=== PATIENT | male | born 1955 | race Caucasian/White ===

== ENCOUNTER 2017-06-22 18:27 | Inpatient (IN) | payer SELFPAY ==
[~2017-06-22] VITALS: Ht 175.3 cm; Wt 63.9 kg
[~2017-06-22 18:27] MED LIST: LACTATED RINGER'S 1000 ML INJ 3,000 ML IV ONE; NEOSTIGMINE 3 MG/3 ML SYR IV ONE; ONDANSETRON HCL 4 MG/2 ML VIAL IV PUSH ONE; OXYCODONE PO; PHENYLEPH/NS 1000 MCG/10 ML SYR IV ONE; PROPOFOL 200 MG/20 ML AMP IV ONE
[2017-06-22 18:29] VITALS: BP 109/83; PULSE 136; RESP 22; TEMP 97.5; O2SAT 100
[2017-06-22] MEDS ORDERED: SODIUM CHLOR 0.9% 1000 ML INJ 1,000 ML IV ONE ×3 (19:00→20:30)
[2017-06-22] MEDS ORDERED: ONDANSETRON HCL 4 MG/2 ML VIAL IV ONE (19:00)
[2017-06-22] MEDS ORDERED: HYDROmorphone HCL PF 1 MG/ML VIAL IVS ONE (19:15)
--- NOTE | 2017-06-22 19:21 | RADRPT ---
EXAM DATE/TIME: 06/22/2017 18:53 [facility] COMPARISON: No previous studies available for comparison. INDICATIONS : Short of breath MEDICAL HISTORY : None. SURGICAL HISTORY : None. ENCOUNTER: Initial ACUITY: 1 day PAIN SCORE: 0/10 LOCATION: chest FINDINGS: A single view of the chest demonstrates the lungs to be symmetrically aerated without evidence of mas s, infiltrate or effusion. The cardiomediastinal contours are unremarkable. Osseous structures are intact. CONCLUSION: No acute disease. Corby Herrera MD on June 22, 2017 at 19:19 Board Certified Radiologist. This report was verified electronically.
[2017-06-22 19:35] VITALS: BP 141/96; PULSE 109; RESP 22; O2SAT 99
[2017-06-22 19:42] LABS: AUTOMATED NEUTROPHIL # 5.7 TH/MM3 (1.8-7.7); BASOPHIL % 0.2 % (0.0-2.0); EOSINOPHIL % 0.5 % (0.0-4.0); HEMATOCRIT 61.6 % (39.0-51.0); HEMO FLAGS DIFF FINAL; LYMPH % 12.7 % (9.0-44.0); LYMPHOCYTE # 0.9 TH/MM3 (1.0-4.8); MEAN CORPUSCULAR HEMOGLOBIN 30.2 PG (27.0-34.0); MEAN CORPUSCULAR HGB CONC 33.2 % (32.0-36.0); MONO % 7.5 % (0.0-8.0); NEUT % 79.1 % (16.0-70.0); PLATELET COUNT 206 TH/MM3 (150-450); RED BLOOD COUNT 6.77 MIL/MM3 (4.50-5.90); RED CELL DISTRIBUTION WIDTH 15.4 % (11.6-17.2); WHITE BLOOD COUNT 7.2 TH/MM3 (4.0-11.0)
[2017-06-22 19:52] VITALS: O2SAT 98
[2017-06-22 19:57] LABS: ALKALINE PHOSPHATASE 91 U/L (45-117); ALT (GPT) 76 U/L (12-78); ANION GAP 12 MEQ/L (5-15); AST (GOT) 57 U/L (15-37); BICARBONATE 26.5 MEQ/L (21.0-32.0); BLOOD UREA NITROGEN 28 MG/DL (7-18); CHLORIDE 92 MEQ/L (98-107); GLOMERULAR FILTRATION RATE 41 ML/MIN (>89); MAGNESIUM 2.5 MG/DL (1.5-2.5); POTASSIUM 4.2 MEQ/L (3.5-5.1); SODIUM (NA) 130 MEQ/L (136-145)
[2017-06-22 20:10] LABS: INTERNATIONAL NORMALIZED RATIO 1.2 RATIO; PROTHROMBIN TIME - PATIENT 13.2 SEC (9.8-11.6)
[2017-06-22 20:15] LABS: APTT (PATIENT) 27.5 SEC (24.3-30.1)
[2017-06-22] MEDS ORDERED: IODIXANOL 320 MG/ML 10 ML VIAL (for Rad CT) IV ONE (20:25)
[2017-06-22] MEDS ORDERED: PIPERACIL-TAZO 3.375 GM PREMIX 50 ML IV ONE (20:30)
[2017-06-22] MEDS ORDERED: VANCOMYCIN INJ 1,000 MG in SODIUM CHLOR 0.9% 250 ML INJ 250 ML IV ONE (20:30)
[2017-06-22 20:35] VITALS: BP 150/87; PULSE 115; RESP 22; O2SAT 99
[2017-06-22] MEDS ORDERED: HYDROmorphone HCL PF 1 MG/ML VIAL IV PUSH ONE (20:45)
[2017-06-22] MEDS ORDERED: MIDAZOLAM HCL 2 MG/2 ML VIAL IV PUSH ONE (20:45)
--- NOTE | 2017-06-22 20:47 | PD ---
HPI Chief Complaint: Abdominal Pain Time Seen by Provider: 18:51 Travel History International Travel<30 days: No Contact w/Intl Traveler<30days: No Traveled to known affect area: No History of Present Illness HPI Is a 61-year-old man presents to the emergency department complaining of severe abdominal pain. He states symptoms started about 20 hours ago. Pain is been persistent and progressive. He has severe tenderness, and pain with any movement. He was dropped off by a friend. He reports no history of abdominal surgery. He states that he has had liver problems from drinking in the past but has not drank in 2 years. He does endorse IV drug use. He states he's been vomiting, and has noticed a little bit of blood in his vomit. No fevers. Denies any other medical problems. History Past Medical History Narrative Medical Alcoholic liver disease Active IV drug use Social History Alcohol Use: Yes (6 BEER/DAY) Tobacco Use: Yes (1/2 A PACK A DAY ) Allergies-Medications (Allergen,Severity, Reaction): Coded Allergies: Penicillin (Verified Allergy, Mild, REACTION TO SITE OF INJECTION, 06/22/17) Reported Meds & Prescriptions Reported Meds & Active Scripts Active Reported Oxycodone (Oxycodone HCl) 30 Mg Tab 30 Mg PO Q4HR PRN Review of Systems ROS Limitations: Clinical Condition Physical Exam Narrative GENERAL: This is an ill-appearing 61-year-old man, diaphoretic, thin. SKIN: Focused skin assessment warm/dry. HEAD: Atraumatic. Temporal wasting. EYES: Pupils equal and round. No scleral icterus. No injection or drainage. ENT: No nasal bleeding or discharge. Mucous membranes pink and moist. NECK: Trachea midline. No JVD. CARDIOVASCULAR: Heart rate rapid, pulse is a little thready. RESPIRATORY: Mild tachypnea. No obvious respiratory distress. GASTROINTESTINAL: Abdomen is flat, peritonitis. MUSCULOSKELETAL: No obvious deformities. Decreased muscle bulk. No edema. NEUROLOGICAL: Awake and alert. No obvious cranial nerve deficits. Motor grossly within normal limits. Normal speech. PSYCHIATRIC: Appropriate mood and affect; insight and judgment normal. Data Data Last Documented VS Vital Signs Date Time Temp Pulse Resp B/P Pulse Ox O2 Delivery O2 Flow Rate FiO2 06/22/17 20:35 115 22 150/87 99 Room Air 06/22/17 18:29 97.5 Orders Complete Blood Count With Diff (06/22/17 18:51) Comprehensive Metabolic Panel (06/22/17 18:51) Prothrombin Time / Inr (Pt) (06/22/17 18:51) Act Partial Throm Time (Ptt) (06/22/17 18:51) Lactic Acid Sepsis Protocol (06/22/17 18:51) Magnesium (Mg) (06/22/17 18:51) Lipase (06/22/17 18:51) Troponin I (06/22/17 18:51) Urinalysis - C+S If Indicated (06/22/17 18:51) Blood Culture (06/22/17 18:51) Chest, Single Ap (06/22/17 18:51) Blood Glucose (06/22/17 18:51) Ecg Monitoring (06/22/17 18:51) Iv Access Insert/Monitor (06/22/17 18:51) Oximetry (06/22/17 18:51) Oxygen Administration (06/22/17 18:51) Type And Screen (06/22/17 18:51) Sodium Chlor 0.9% 1000 Ml Inj (Ns 1000 M (06/22/17 19:00) Ondansetron Inj (Zofran Inj) (06/22/17 19:00) Hydromorphone Pf Inj (Dilaudid Pf Inj) (06/22/17 19:15) Sodium Chlor 0.9% 1000 Ml Inj (Ns 1000 M (06/22/17 19:15) Ct Abd/Pel W Iv Contrast(Rout) (06/22/17 ) Electrocardiogram (06/22/17 19:01) Sodium Chlor 0.9% 1000 Ml Inj (Ns 1000 M (06/22/17 20:30) Vancomycin Inj (Vancomycin Inj) (06/22/17 20:30) Piperacil-Tazo 3.375 Gm Premix (Zosyn 3. (06/22/17 20:30) Iodixanol 320 Inj (Rad Ct) (Visipaque 32 (06/22/17 20:25) Hydromorphone Pf Inj (Dilaudid Pf Inj) (06/22/17 20:45) Midazolam Inj (Versed Inj) (06/22/17 20:45) Admit Order (Ed Use Only) (06/22/17 ) Labs Laboratory Tests Test 06/22/17 19:15 White Blood Count 7.2 TH/MM3 Red Blood Count 6.77 MIL/MM3 Hemoglobin 20.5 GM/DL Hematocrit 61.6 % Mean Corpuscular Volume 91.0 FL Mean Corpuscular Hemoglobin 30.2 PG Mean Corpuscular Hemoglobin 33.2 % Concent Red Cell Distribution Width 15.4 % Platelet Count 206 TH/MM3 Mean Platelet Volume 9.4 FL Neutrophils (%) (Auto) 79.1 % Lymphocytes (%) (Auto) 12.7 % Monocytes (%) (Auto) 7.5 % Eosinophils (%) (Auto) 0.5 % Basophils (%) (Auto) 0.2 % Neutrophils # (Auto) 5.7 TH/MM3 Lymphocytes # (Auto) 0.9 TH/MM3 Monocytes # (Auto) 0.5 TH/MM3 Eosinophils # (Auto) 0.0 TH/MM3 Basophils # (Auto) 0.0 TH/MM3 CBC Comment DIFF FINAL Differential Comment Prothrombin Time 13.2 SEC Prothromb Time International 1.2 RATIO Ratio Activated Partial 27.5 SEC Thromboplast Time Sodium Level 130 MEQ/L Potassium Level 4.2 MEQ/L Chloride Level 92 MEQ/L Carbon Dioxide Level 26.5 MEQ/L Anion Gap 12 MEQ/L Blood Urea Nitrogen 28 MG/DL Creatinine 1.70 MG/DL Estimat Glomerular Filtration 41 ML/MIN Rate Random Glucose 209 MG/DL Lactic Acid Level 5.9 mmol/L Calcium Level 8.8 MG/DL Magnesium Level 2.5 MG/DL Total Bilirubin 1.0 MG/DL Aspartate Amino Transf 57 U/L (AST/SGOT) Alanine Aminotransferase 76 U/L (ALT/SGPT) Alkaline Phosphatase 91 U/L Troponin I LESS THAN 0.02 NG/ML Total Protein 7.9 GM/DL Albumin 3.1 GM/DL Lipase 181 U/L Blood Type O POSITIVE Antibody Screen NEGATIVE MDM Medical Decision Making Medical Screen Exam Complete: Yes Emergency Medical Condition: Yes Interpretation(s) LABS: CBC is remarkable for hemoglobin of 20 CMP remarkable for evident and creatinine Lactate 5.9 Lipase 181 Coags INR 1.2 Chest x-ray: No acute disease. CT abdomen and pelvis: Free intraperitoneal air with moderate to severe ascites. 7.9 mm loculated abscess in the mesentery 11 a sac. Probable portal venous gas. Findings suspicious for perforated bowel. Differential Diagnosis Perforation, pancreatitis, gastritis, mesenteric ischemia, GI bleed, sepsis, other Narrative Course Medical decision making A 61-year-old man who presents to the emergency department with severe abdominal pain about 20 hours with some hematemesis. He has peritonitis on exam. He looks ill. Likely has pancreatitis perforation or GI bleed. Abdominal x-ray doesn't show any free air. I went over the patient is CT scan, CT scan shows free air with fluid in the belly as well. I spoke with Dr. Rubin, with general surgery, came immediately to the bedside to evaluate the patient. Patient be admitted to the ICU. Possibly to OR. Critical Care Narrative Aggregate critical care time was 45 minutes. Time to perform other separately billable procedures was not included in the critical care time. My time did not include minutes spent treating any other patients simultaneously or on activities that did not directly contribute to the patient's treatment. The services I provided to this patient were to treat and/or prevent clinically significant deterioration that could result in: , worsening sepsis, increased morbidity, unrecognized bowel. I provided critical care services requiring my management, as noted below: Chart data review, documentation time, medication orders and management, vital sign assessments/reviewing monitor data, ordering and reviewing lab tests, ordering and interpreting/reviewing x-rays and diagnostic studies, care of the patient and discussion of the patient with the admitting physicians. Diagnosis Primary Impression: Perforated bowel Admitting Information Admitting Physician Requests: Laz Breen MD Jun 22, 2017 20:47
--- NOTE | 2017-06-22 20:49 | RADRPT ---
EXAM DATE/TIME: 06/22/2017 20:15 [facility] COMPARISON: No previous studies available for comparison. INDICATIONS : Abdominal pain with vomiting. IV CONTRAST: 50 cc Visipaque (iodixanol) IV ORAL CONTRAST: No oral contrast ingested. RADIATION DOSE: 6.67 CTDIvol (mGy) MEDICAL HISTORY : Gastroesophageal reflux disease. SURGICAL HISTORY : Cervical fusion. ENCOUNTER: Initial ACUITY: 1 day PAIN SCALE: 6/10 LOCATION: Bilateral abdomen TECHNIQUE: Volumetric scanning of the abdomen and pelvis was performed. Using automated exposure control and ad justment of the mA and/or kV according to patient size, radiation dose was kept as low as reasonably achievable to obtain optimal diagnostic quality images. DICOM format image data is available electro nically for review and comparison. FINDINGS: Lung bases are clear. There is free intraperitoneal air within the abdomen. There is moderate to severe ascites in the abdo men and pelvis. There is a subtle loculated collection in the midabdomen, possibly the mesentery that contains multiple small locules of air, probably a mesenteric or lesser sac abscess. The findings ar e most characteristic of a perforated viscus with associated abscess and free air. There is a mild il eus. No definite obstruction. The multiple thickened loops of small bowel. There is some trace air in the liver possibly portal angi ous gas. Findings discussed by telephone with Dr. Rubin. CONCLUSION: 1. Free intraperitoneal air with moderate to severe ascites. 7.9 cm loculated abscess in the mesenter y or lesser sac. Probable portal venous gas. Findings suspicious for perforated bowel. No definite ob struction. 2. Hiatal hernia with fluid in distal esophagus. Lung bases clear. Corby Herrera MD on June 22, 2017 at 20:39 Board Certified Radiologist. This report was verified electronically.
[2017-06-22] MEDS ORDERED: OXYC30TA PO (20:54)
--- NOTE | 2017-06-22 21:09 | PD.CONS ---
HPI Service General surgery Consult Requested By Dr. Suarez Reason for Consult Perforated viscus Primary Care Physician No Primary Care Physician History of Present Illness The patient is a 61-year-old male who has a history of alcoholism and IV drug use with abdominal pain for 24 hours which is worsened in severity. He states that initially he had an episode of retching but was unable to have emesis and this is when he began to have some pain. He has no known history of peptic ulcers. He does have a history of diverticulitis. He drank very heavily until about 2 years ago. He uses narcotics IV now. No previous abdominal surgeries. He was noted to have a lactate of [address] abdomen and pelvis shows a large volume of free fluid also with free air. I reviewed the imaging also discussed the case with Dr. Herrera. Review of Systems Constitutional: DENIES: Fever, Chills Eyes: DENIES: Eye inflammation, Eye pain Respiratory: DENIES: Cough, Shortness of breath Cardiovascular: DENIES: Chest pain, Palpitations Gastrointestinal: COMPLAINS OF: Abdominal pain, Nausea, Vomiting Musculoskeletal: COMPLAINS OF: Neck pain, DENIES: Joint Swelling Integumentary: DENIES: Pruritus, Rash Neurologic: DENIES: Abnormal gait, Seizures Past Family Social History Past Medical History Diverticulitis Alcohol abuse IV drug use Past Surgical History Cervical fusion Reported Medications Reported Meds & Active Scripts Active Reported Oxycodone (Oxycodone HCl) 30 Mg Tab 30 Mg PO Q4HR PRN Allergies: Coded Allergies: Penicillin (Verified Allergy, Mild, REACTION TO SITE OF INJECTION, 06/22/17) Active Ordered Medications Current Medications Medications (Trade) Dose Ordered Sig/Jorge Route Start Time Stop Time Status Last Admin Sodium Chloride 1,000 ml @ 2,000 mls/hr Q30M ONCE IV 06/22/17 20:30 06/22/17 20:59 Vancomycin HCl 1000 mg/Sodium Chloride 250 ml @ 250 mls/hr ONCE ONCE IV 06/22/17 20:30 06/22/17 21:29 (Zosyn 3.375 Gm Premix) 50 ml @ 100 mls/hr ONCE ONCE IV 06/22/17 20:30 06/22/17 20:59 Family History Noncontributory Social History He smokes tobacco. He drank heavily for 40 years and stopped 2 years ago. He uses IV narcotics. Physical Exam Vital Signs Vital Signs Date Time Temp Pulse Resp B/P Pulse Ox O2 Delivery O2 Flow Rate FiO2 06/22/17 19:52 98 Room Air 06/22/17 19:44 18 06/22/17 18:29 97.5 136 22 109/83 100 Physical Exam GENERAL: Awake and alert. In pain. Cachectic. HEAD: Normocephalic. Atraumatic. EYES: Pupils equal round and reactive to light bilaterally. No scleral icterus. NECK: Trachea midline. CHEST: Lungs clear to auscultation bilaterally with no wheezing or rhonchi. No respiratory distress. CARDIOVASCULAR: Sinus tachycardia ABDOMEN: Moderate distention. Diffuse rebound and guarding. EXTREMITIES: No cyanosis or edema. SKIN: Cool, dry, nonjaundiced. He has small lesions which appear to be bites on his extremities and torso Laboratory Laboratory Tests Test 06/22/17 19:15 White Blood Count 7.2 Red Blood Count 6.77 Hemoglobin 20.5 Hematocrit 61.6 Mean Corpuscular Volume 91.0 Mean Corpuscular Hemoglobin 30.2 Mean Corpuscular Hemoglobin 33.2 Concent Red Cell Distribution Width 15.4 Platelet Count 206 Mean Platelet Volume 9.4 Neutrophils (%) (Auto) 79.1 Lymphocytes (%) (Auto) 12.7 Monocytes (%) (Auto) 7.5 Eosinophils (%) (Auto) 0.5 Basophils (%) (Auto) 0.2 Neutrophils # (Auto) 5.7 Lymphocytes # (Auto) 0.9 Monocytes # (Auto) 0.5 Eosinophils # (Auto) 0.0 Basophils # (Auto) 0.0 CBC Comment DIFF FINAL Differential Comment Prothrombin Time 13.2 Prothromb Time International 1.2 Ratio Activated Partial 27.5 Thromboplast Time Sodium Level 130 Potassium Level 4.2 Chloride Level 92 Carbon Dioxide Level 26.5 Anion Gap 12 Blood Urea Nitrogen 28 Creatinine 1.70 Estimat Glomerular Filtration 41 Rate Random Glucose 209 Lactic Acid Level 5.9 Calcium Level 8.8 Magnesium Level 2.5 Total Bilirubin 1.0 Aspartate Amino Transf 57 (AST/SGOT) Alanine Aminotransferase 76 (ALT/SGPT) Alkaline Phosphatase 91 Troponin I LESS THAN 0.02 Total Protein 7.9 Albumin 3.1 Lipase 181 Blood Type O POSITIVE Antibody Screen NEGATIVE Date/Time Procedure Status Source Growth 06/22/17 19:28 Aerobic Blood Culture Received Blood Peripheral Pending 06/22/17 19:28 Anaerobic Blood Culture Received Blood Peripheral Pending Result Diagram: 06/22/17191406/22/171914 Imaging Last Impressions Chest X-Ray 06/22/17 1851 Signed Impressions: Service Date/Time: Thursday, June 22, 2017 18:53 - CONCLUSION: No acute disease. Corby Herrera MD Abdomen/Pelvis CT 06/22/17 0000 Signed Impressions: Service Date/Time: Thursday, June 22, 2017 20:15 - CONCLUSION: 1. Free intraperitoneal air with moderate to severe ascites. 7.9 cm loculated abscess in the mesentery or lesser sac. Probable portal venous gas. Findings suspicious for perforated bowel. No definite obstruction. 2. Hiatal hernia with fluid in distal esophagus. Lung bases clear. Corby Herrera MD Assessment and Plan Assessment and Plan 61-year-old male with history of alcohol abuse and recent IV drug use with perforated viscus. I had an in-depth discussion with the patient regarding his diagnosis. I do not know the etiology of the pneumoperitoneum and free fluid, however, he will not survive without an operation. He understands I will perform any necessary procedures and that bowel resection and ostomy are possible. He will probably have a somewhat prolonged stay in the intensive care unit. He understands his critical condition. Case discussed with Dr. Suarez. Case discussed with Dr. Herrera. ScottieJuancho delgado MD Jun 22, 2017 21:09
[2017-06-22 21:27] LABS: LACTIC ACID GHOST NOT REPORTABLE
[2017-06-22] MEDS ORDERED: metroNIDAZOLE 500 MG INJ 100 ML IV ONE (22:23)
[2017-06-22] MEDS ORDERED: SUGAMMADEX SODIUM 200 MG/2 ML VIAL IV PUSH ONE ×2 (22:40)
--- NOTE | 2017-06-22 23:45 | HHI.HP ---
[facility] Service Critical Care Medicine Primary Care Physician No Primary Care Physician Admission Diagnosis Perforated Bowel Diagnosis: (1) Perforated bowel Diagnosis: Principal (2) History of ETOH abuse Diagnosis: Principal (3) Hyponatremia Diagnosis: Principal (4) Polycythemia Diagnosis: Principal (5) Lactic acidosis Diagnosis: Principal (6) Sigmoid diverticulosis Diagnosis: Principal (7) Acute kidney injury Diagnosis: Principal (8) Elevated AST (SGOT) Diagnosis: Principal (9) Ascites Diagnosis: Principal (10) History of hepatitis Diagnosis: Principal (11) Current tobacco use Diagnosis: Principal (12) Septic shock Diagnosis: Principal (13) Chronic, continuous use of opioids Diagnosis: Principal Chief Complaint: Abdominal pain Travel History International Travel<30 Days: No Contact w/Intl Traveler <30 Da: No Traveled to Known Affected Are: No Sepsis Criteria SIRS Criteria (2 or more): Heart rate over 90, RR > 20 or PaCO2 < 32 Sepsis Criteria (SIRS+source): Infect source susp/known Severe Sepsis (+one): Lactate >2 Septic Shock Criteria: Lactic acid >=4 History of Present Illness 61-year-old male. Date of admission 06/22/2017. Past medical history includes EtOH, tobaccoism. States he's been off alcohol for 2 years, hepatitis A, sigmoid diverticulosis, gastroesophageal reflux disease. Chronic oxycodone use. No previous abdominal surgeries. Workup included a CT the abdomen/pelvis revealed free intraperitoneal air, abdominal ascites with 7.9 cm loculation in the mesentery/lesser sac, hiatal hernia with food in esophagus and portal venous gas. Lactate was 5.9. White Blood cell count was normal. Patient was in acute renal failure creatinine 1.7/baseline 0.9 and a polycythemia/likely hemoconcentration due to dehydration Patient was taken to the OR for exploratory surgery by Dr. Rubin. Patient had an exploratory laparotomy is noted to have a perforation for a redo likely secondary to peptic ulcer. Gram patch was placed. Patient is currently been extubated in PACU. Review of Systems Constitutional: DENIES: Fatigue, Fever, Weight gain, Weight loss Endocrine: DENIES: Polydipsia, Polyuria Eyes: DENIES: Blurred vision Ears, nose, mouth, throat: DENIES: Hoarseness, Running Nose Respiratory: DENIES: Shortness of breath Cardiovascular: DENIES: Chest pain Gastrointestinal: COMPLAINS OF: Abdominal pain, Nausea, Vomiting Genitourinary: DENIES: Urgency, Hematuria, Dysuria Musculoskeletal: DENIES: Joint pain Integumentary: DENIES: Abnormal pigmentation Hematologic/lymphatic: DENIES: Bruising Immunologic/allergic: DENIES: Eczema Neurologic: DENIES: Headache Psychiatric: COMPLAINS OF: Anxiety, DENIES: Confusion Past Family Social History Allergies: Coded Allergies: Penicillin (Verified Allergy, Mild, REACTION TO SITE OF INJECTION, 06/22/17) Past Medical History Gastroesophageal reflux disease Sigmoid diverticulosis Internal hemorrhoids History of EtOH Ongoing tobaccoism Chronic opiate use History of hepatitis A? Past Surgical History C3/4 fusion Reported Medications Oxycodone 30 mg by mouth every 4 hours when necessary Active Ordered Medications Reviewed in EMR Family History Mother and father is not described in previous records. Unable to obtain currently. Social History Quit alcohol 2 years ago. Positive ongoing tobaccoism 40 years. Positive chronic opiate use. Physical Exam Vital Signs Vital Signs Date Time Temp Pulse Resp B/P Pulse Ox O2 Delivery O2 Flow Rate FiO2 06/22/17 21:28 18 06/22/17 20:35 115 22 150/87 99 Room Air 06/22/17 19:52 98 Room Air 06/22/17 19:44 18 06/22/17 19:35 109 22 141/96 99 Room Air 06/22/17 18:29 97.5 136 22 109/83 100 Physical Exam GENERAL: 61-year-old male, critically ill currently orotracheally intubated SKIN: Warm and dry. HEAD: Atraumatic. Normocephalic. EYES: Pupils equal and round around 1 mm bilaterally pinpoint. No scleral icterus. No injection or drainage. ENT: No nasal bleeding or discharge. Mucous membranes pink and moist. NECK: Trachea midline. No JVD. CARDIOVASCULAR: Regular rate and rhythm. S1, S2. No S4. Without murmur RESPIRATORY: No accessory muscle use. Clear to auscultation. Breath sounds equal bilaterally. GASTROINTESTINAL: Patient with abdominal binder on. [place] left lower quadrant with serosanguineous drainage. Incision appears clean dry and intact MUSCULOSKELETAL: Extremities without difficulty and peripheral edema. No obvious deformities. NEUROLOGICAL: Currently being weaned from sedation status post OR. Withdraws to pain in all 4 extremity's. Positive gag. Positive corneal reflex. Laboratory Laboratory Tests Test 06/22/17 19:15 White Blood Count 7.2 Red Blood Count 6.77 Hemoglobin 20.5 Hematocrit 61.6 Mean Corpuscular Volume 91.0 Mean Corpuscular Hemoglobin 30.2 Mean Corpuscular Hemoglobin 33.2 Concent Red Cell Distribution Width 15.4 Platelet Count 206 Mean Platelet Volume 9.4 Neutrophils (%) (Auto) 79.1 Lymphocytes (%) (Auto) 12.7 Monocytes (%) (Auto) 7.5 Eosinophils (%) (Auto) 0.5 Basophils (%) (Auto) 0.2 Neutrophils # (Auto) 5.7 Lymphocytes # (Auto) 0.9 Monocytes # (Auto) 0.5 Eosinophils # (Auto) 0.0 Basophils # (Auto) 0.0 CBC Comment DIFF FINAL Differential Comment Prothrombin Time 13.2 Prothromb Time International 1.2 Ratio Activated Partial 27.5 Thromboplast Time Sodium Level 130 Potassium Level 4.2 Chloride Level 92 Carbon Dioxide Level 26.5 Anion Gap 12 Blood Urea Nitrogen 28 Creatinine 1.70 Estimat Glomerular Filtration 41 Rate Random Glucose 209 Lactic Acid Level 5.9 Calcium Level 8.8 Magnesium Level 2.5 Total Bilirubin 1.0 Aspartate Amino Transf 57 (AST/SGOT) Alanine Aminotransferase 76 (ALT/SGPT) Alkaline Phosphatase 91 Troponin I LESS THAN 0.02 Total Protein 7.9 Albumin 3.1 Lipase 181 Blood Type O POSITIVE Antibody Screen NEGATIVE Date/Time Procedure Status Source Growth 06/22/17 19:28 Aerobic Blood Culture Received Blood Peripheral Pending 06/22/17 19:28 Anaerobic Blood Culture Received Blood Peripheral Pending Result Diagram: 06/22/17191406/22/171914 Imaging Last Impressions Chest X-Ray 06/22/17 1851 Signed Impressions: Service Date/Time: Thursday, June 22, 2017 18:53 - CONCLUSION: No acute disease. Corby Herrera MD Abdomen/Pelvis CT 06/22/17 0000 Signed Impressions: Service Date/Time: Thursday, June 22, 2017 20:15 - CONCLUSION: 1. Free intraperitoneal air with moderate to severe ascites. 7.9 cm loculated abscess in the mesentery or lesser sac. Probable portal venous gas. Findings suspicious for perforated bowel. No definite obstruction. 2. Hiatal hernia with fluid in distal esophagus. Lung bases clear. Corby Herrera MD Assessment and Plan Assessment and Plan Neuro/Psych: Chronic opioid use History of EtOH abuse Postoperative pain management Currently on Dilaudid PROCUREMENT ACCOUNTANT for pain management Significant for fever Holding oxycodone 30 mg by mouth every 4 hours when necessary pain Thiamine daily CV: Lactic acidosis Patient is currently hemodynamically stable and not requiring antihypertensive and or vasopressors Trending lactates until cleared Currently normal saline 125 cc an hour Resp: Tobaccoism Nasal cannula to maintain saturations greater than equal to 92% Attempting extubation in PACU Incentive spirometry while awake Bacot cessation encouraged GI: Abdominal ascites Elevated AST History of hepatitis A? Sigmoid diverticulosis Internal hemorrhoids Gastroesophageal reflux disease Postop day #0 Ex lap Primary repair and patricio patch duodenal ulcer CT abdomen/pelvis 06/22 revealed free intraperitoneal air, abdominal ascites with a 7.9 cm loculation/abscess area in the mesentery/lesser sac and possible portal venous gas. Hiatal hernia with fluid in esophagus noted as well. Follow-up LFT in a.m. Perforated peptic ulcer first part of duodenum. A Patricio patch placed. Patient is currently nothing by mouth Pantoprazole 40 mg IV twice a day for GI prophylaxis : Charles catheter if indicated for accurate I's and O's in a critically ill patient Endo: Hyperglycemia of critical illness Sliding-scale insulin to maintain euglycemia/low regimen with Accu-Cheks every 4 hours Renal: Acute kidney injury Likely secondary to dehydration/underlying sepsis. BMP in a.m. Heme: Polycythemia Likely hemoconcentration. Follow up CBC in AM. ID: Status post Zosyn/vancomycin. Currently Levaquin/Flagyl day #1 per general surgery Blood cultures 2 06/22 pending FEN: Hyponatremia Replace electrolytes as clinically indicated MSK: PT evaluate and treat Access Peripheral IVs/right radial arterial line day #0 placed in OR Prophylaxis - GI - pantoprazole 40 mg IV twice a day - DVT - SCD/heparin subcutaneous Level III admission Code Status Full code Discussed Condition With [employer] ADMINISTRATOR. Care plan discussed and all questions answered. Problem Qualifiers (1) Ascites: Qualified Code: R18.8 - Other ascites Pradeep Leung MD Jun 22, 2017 23:45
[2017-06-23] VITALS (12 sets, daily range): BP systolic 108–129; BP diastolic 62–86; PULSE 73–110; RESP 11–17; TEMP 95.8–98.5; O2SAT 98–100
[2017-06-23] MEDS ORDERED: NALOXONE HCL 0.4 MG/ML AMP IV PRN ×2
[2017-06-23] MEDS ORDERED: Post-op Orders (for Pharmacy) MISC XX ONE
[2017-06-23] MEDS ORDERED: DO NOT ADM ANY ANTICOAGULANT DRUGS PRN
[2017-06-23] MEDS ORDERED: diphenhydrAMINE HCL 50 MG/ML VIAL IV PRN
--- NOTE | 2017-06-23 00:07 | HHI.PR ---
Immediate Post Op Note Procedure Date: Jun 23, 2017 Pre Op Diagnosis: (1) Perforated bowel (2) Lactic acidosis Post Op Diagnosis: (1) Duodenal ulcer with perforation Surgeon: Juancho Rubin Surgeon'S Assistant(s): Jazmyn Shepard CFA Procedure: Ex lap Primary repair and stefani patch duodenal ulcer Findings: perf post ulcer 1st portion duodenum Complications: none Anesthesia: General Drains: FLORENCE Patient to: PACU Patient Condition: Juancho Little MD Jun 23, 2017 00:07
[2017-06-23] MEDS ORDERED: LEVOFLOXACIN 500 MG PREMIX INJ 100 ML IV ONE (00:25)
[2017-06-23] MEDS ORDERED: LEVOFLOXACIN 250 MG PREMIX INJ 50 ML IV ONE (00:25)
[2017-06-23] MEDS ORDERED: fentaNYL CITRATE 250 MCG/5 ML AMP ONE ×2 (00:27)
[2017-06-23] MEDS: HYDROmorphone HCL PCA 6 MG/30 ML IV SCH ×3 (00:30→20:04)
[2017-06-23] MEDS: SODIUM CHLOR 0.9% 1000 ML INJ 1,000 ML IV SCH ×3 (00:32→12:00)
[2017-06-23] MEDS ORDERED: SODIUM CHLORIDE 0.9% FLUSH 10 ML FLUSH IV FLUSH PRN ×2 (00:45)
[2017-06-23] MEDS ORDERED: CHLORHEXIDINE GLUCONATE 2 % 1 PACK (2 CLOTHS) TOP PRN (00:45)
[2017-06-23] MEDS ORDERED: ONDANSETRON HCL 4 MG/2 ML VIAL IV PRN ×2 (00:45)
[2017-06-23] MEDS ORDERED: GLUCAGON 1 MG/ML VIAL OTHER PRN (00:45)
[2017-06-23] MEDS ORDERED: MISCELLANEOUS NURSING INFORMATION XX SCH (00:45)
[2017-06-23] MEDS ORDERED: DEXTROSE 50% IN WATER 50 ML VIAL(D50) IV PRN (00:45)
[2017-06-23] MEDS ORDERED: ACETAMINOPHEN 325 MG TAB PO PRN (00:45)
[2017-06-23] MEDS ORDERED: RESP: ALBUTEROL 2.5 MG/3 ML NEB (PRN) INH (00:45)
[2017-06-23] MEDS: LEVOFLOXACIN 750 MG PREMIX INJ 150 ML IV SCH (01:00)
--- NOTE | 2017-06-23 02:02 | HHI.CCPN ---
Subjective Remarks/Hospital Course 61-year-old male. Date of admission 06/22/2017. Past medical history includes EtOH, tobaccoism. States he's been off alcohol for 2 years, hepatitis A, sigmoid diverticulosis, gastroesophageal reflux disease. Chronic oxycodone use. No previous abdominal surgeries. Workup included a CT the abdomen/pelvis revealed free intraperitoneal air, abdominal ascites with 7.9 cm loculation in the mesentery/lesser sac, hiatal hernia with food in esophagus and portal venous gas. Lactate was 5.9. White Blood cell count was normal. Patient was in acute renal failure creatinine 1.7/baseline 0.9 and a polycythemia/likely hemoconcentration due to dehydration Patient was taken to the OR for exploratory surgery by Dr. Rubin. Patient had an exploratory laparotomy is noted to have a perforation for a redo likely secondary to peptic ulcer. Gram patch was placed. Patient is currently been extubated in PACU. Subjective 06/23: Patient was extubated in PACU. Currently on nasal cannula. Hemodynamically stable. Complains of pain at incision site. Objective Vital Signs Date Time Temp Pulse Resp B/P Pulse Ox O2 Delivery O2 Flow Rate FiO2 06/23/17 01:00 100 21 128/79 100 Mechanical Ventilator 40 06/23/17 00:14 97.4 Result Diagram: 06/22/17191406/22/171914 Other Results Microbiology Date/Time Procedure Status Source Growth 06/22/17 19:28 Aerobic Blood Culture Received Blood Peripheral Pending 06/22/17 19:28 Anaerobic Blood Culture Received Blood Peripheral Pending Imaging Last Impressions Chest X-Ray 06/22/17 1851 Signed Impressions: Service Date/Time: Thursday, June 22, 2017 18:53 - CONCLUSION: No acute disease. Corby Herrera MD Abdomen/Pelvis CT 06/22/17 0000 Signed Impressions: Service Date/Time: Thursday, June 22, 2017 20:15 - CONCLUSION: 1. Free intraperitoneal air with moderate to severe ascites. 7.9 cm loculated abscess in the mesentery or lesser sac. Probable portal venous gas. Findings suspicious for perforated bowel. No definite obstruction. 2. Hiatal hernia with fluid in distal esophagus. Lung bases clear. Corby Herrera MD Objective Remarks GENERAL: 61-year-old male, critically ill currently orotracheally intubated SKIN: Warm and dry. HEAD: Atraumatic. Normocephalic. EYES: Pupils equal and round around 2 mm bilaterally and reactive. No scleral icterus. No injection or drainage. ENT: No nasal bleeding or discharge. Mucous membranes pink and moist. NECK: Trachea midline. No JVD. CARDIOVASCULAR: Regular rate and rhythm. S1, S2. No S4. Without murmur RESPIRATORY: No accessory muscle use. Clear to auscultation. Breath sounds equal bilaterally. GASTROINTESTINAL: Patient with abdominal binder on. FLORENCE left lower quadrant with serosanguineous drainage. Incision appears clean dry and intact MUSCULOSKELETAL: Extremities without difficulty and peripheral edema. No obvious deformities. NEUROLOGICAL: Cranial nerves II through XII grossly intact. Strength is equal symmetric bilaterally. Normal sensation. 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 Recheck at 6 AM today Currently normal saline 125 cc an hour Resp: Tobaccoism Nasal cannula to maintain saturations greater than equal to 92% Wean as tolerated Incentive spirometry every hour while awake Tobacco cessation encouraged GI: Abdominal ascites Elevated AST History of hepatitis A? Sigmoid diverticulosis Internal hemorrhoids Gastroesophageal reflux disease Postop day #1 Ex lap Primary repair and patricio patch duodenal ulcer Hypoalbuminemia CT abdomen/pelvis 06/22 revealed free intraperitoneal air, abdominal ascites with a 7.9 cm loculation/abscess area in the mesentery/lesser sac and possible portal venous gas. Hiatal hernia with fluid in esophagus noted as well. Follow-up LFT in a.m. Perforated peptic ulcer first part of duodenum. A Patricio patch placed. Patient is currently nothing by mouth Pantoprazole 40 mg IV twice a day for GI prophylaxis Dr. Rubin/general surgery following : Charles catheter if indicated for accurate I's and O's in a critically ill patient Endo: Hyperglycemia of critical illness Sliding-scale insulin to maintain euglycemia/low regimen with Accu-Cheks every 4 hours Renal: Acute kidney injury Likely secondary to dehydration/underlying sepsis. BMP in a.m. pending Heme: Leukocytosis - Polycythemia Likely hemoconcentration. Follow up CBC in AM. ID: Status post Zosyn/vancomycin. Currently Levaquin/Flagyl day #2 per general surgery Blood cultures 2 06/22 pending FEN: Hyponatremia Replace electrolytes as clinically indicated MSK: PT evaluate and treat Access Peripheral IVs/right radial arterial line day #1 placed in OR Prophylaxis - GI - pantoprazole 40 mg IV twice a day - DVT - SCD/heparin subcutaneous Level III follow-up Pradeep Leung MD Jun 23, 2017 02:02
[2017-06-23] MEDS: INSULIN NovoLIN REGULAR SUPPLEMENTAL SCALE SQ SCH ×6 (04:00→23:20)
[2017-06-23 04:21] LABS: AUTOMATED NEUTROPHIL # 9.8 TH/MM3 (1.8-7.7); BASOPHIL % 0.4 % (0.0-2.0); EOSINOPHIL # 0.4 TH/MM3 (0-0.4); EOSINOPHIL % 3.2 % (0.0-4.0); HEMATOCRIT 49.7 % (39.0-51.0); LYMPH % 5.7 % (9.0-44.0); LYMPHOCYTE # 0.6 TH/MM3 (1.0-4.8); MEAN CORPUSCULAR HEMOGLOBIN 29.7 PG (27.0-34.0); MONO % 3.3 % (0.0-8.0); NEUT % 87.4 % (16.0-70.0); PLATELET COUNT 152 TH/MM3 (150-450); RED BLOOD COUNT 5.53 MIL/MM3 (4.50-5.90); WHITE BLOOD COUNT 11.2 TH/MM3 (4.0-11.0)
[2017-06-23 04:25] LABS: HEMO FLAGS AUTO DIFF
[2017-06-23 04:49] LABS: APTT (PATIENT) 36.5 SEC (24.3-30.1); INTERNATIONAL NORMALIZED RATIO 1.2 RATIO; PROTHROMBIN TIME - PATIENT 13.1 SEC (9.8-11.6)
[2017-06-23 04:53] LABS: BICARBONATE 23.3 MEQ/L (21.0-32.0); CALCIUM-PROTEIN CORRECTED 8.6 MG/DL (8.5-10.1); MAGNESIUM 2.1 MG/DL (1.5-2.5); TOTAL BILIRUBIN ADULT 0.9 MG/DL (0.2-1.0)
[2017-06-23] MEDS: CHLORHEXIDINE GLUCONATE 2 % 1 PACK (2 CLOTHS) TOP SCH (06:23)
[2017-06-23] MEDS: metroNIDAZOLE 500 MG INJ 100 ML IV SCH ×3 (06:24→19:47)
[2017-06-23] MEDS: PCA - TOTAL MG DILAUDID DELIVERED PER SHIFT OTHER SCH ×4 (06:28→20:05)
[2017-06-23 07:07] LABS: BANDS 35 % (0-6); NEUTROPHIL # MANUAL DIFF 10.3 TH/MM3 (1.8-7.7); POLYS (SEG NEUTROPHILS) 57 % (16-70); WBC DIFF SAMPLE 100
[2017-06-23 07:08] LABS: PLATELET ESTIMATE SMEAR NORMAL (NORMAL); PLATELET MORPHOLOGY NORMAL (NORMAL); SCAN/DIFF FINAL DIFF MANUAL
[2017-06-23] MEDS ORDERED: SODIUM CHLORIDE 0.9% FLUSH 10 ML FLUSH IV FLUSH SCH (09:00)
[2017-06-23] MEDS: SODIUM CHLORIDE 0.9% FLUSH 10 ML FLUSH IV FLUSH SCH ×2 (09:00→19:46)
[2017-06-23] MEDS: PANTOPRAZOLE SODIUM 40 MG VIAL IV SCH ×2 (09:05→19:47)
[2017-06-23] MEDS: THIAMINE INJ 100 MG in SODIUM CHLORIDE 0.9% INJ 100 ML IV SCH (10:00)
--- NOTE | 2017-06-23 15:42 | EKG ---
Date Performed: 06/22/2017 Time Performed: 19:01:22 PTAGE: 61 years EKG: SINUS TACHYCARDIA, MARKED LEFT AXIS DEVIATION SEPTAL MYOCARDIAL INFARCTION ABNORMAL ECG PREVIOUS TRACING : 10/31/2009 15.15 DOCTOR: Dilia Patterson Interpretating Date/Time 06/23/2017 15:39:09
--- NOTE | 2017-06-23 15:46 | HHI.PR ---
Subjective Subjective Notes He is very thirsty and requests ice cream. He is stable overnight. 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 Objective Vitals/I&O Vital Signs Date Time Temp Pulse Resp B/P Pulse Ox O2 Delivery O2 Flow Rate FiO2 06/23/17 14:00 10 06/23/17 12:00 98.4 84 129/83 100 06/23/17 07:00 Nasal Cannula 3.00 06/23/17 01:00 40 Labs Laboratory Tests Test 06/22/17 06/23/17 06/23/17 19:15 02:00 03:45 White Blood Count 7.2 11.2 Red Blood Count 6.77 5.53 Hemoglobin 20.5 16.4 Hematocrit 61.6 49.7 Mean Corpuscular Volume 91.0 90.0 Mean Corpuscular Hemoglobin 30.2 29.7 Mean Corpuscular Hemoglobin 33.2 33.0 Concent Red Cell Distribution Width 15.4 15.0 Platelet Count 206 152 Mean Platelet Volume 9.4 9.2 Neutrophils (%) (Auto) 79.1 87.4 Lymphocytes (%) (Auto) 12.7 5.7 Monocytes (%) (Auto) 7.5 3.3 Eosinophils (%) (Auto) 0.5 3.2 Basophils (%) (Auto) 0.2 0.4 Neutrophils # (Auto) 5.7 9.8 Lymphocytes # (Auto) 0.9 0.6 Monocytes # (Auto) 0.5 0.4 Eosinophils # (Auto) 0.0 0.4 Basophils # (Auto) 0.0 0.0 CBC Comment DIFF FINAL AUTO DIFF Differential Comment FINAL DIFF MANUAL Prothrombin Time 13.2 13.1 Prothromb Time International 1.2 1.2 Ratio Activated Partial 27.5 36.5 Thromboplast Time Sodium Level 130 137 Potassium Level 4.2 4.0 Chloride Level 92 106 Carbon Dioxide Level 26.5 23.3 Anion Gap 12 8 Blood Urea Nitrogen 28 29 Creatinine 1.70 0.86 Estimat Glomerular Filtration 41 91 Rate Random Glucose 209 90 Lactic Acid Level 5.9 1.3 Calcium Level 8.8 7.4 Magnesium Level 2.5 2.1 Total Bilirubin 1.0 0.9 Aspartate Amino Transf 57 32 (AST/SGOT) Alanine Aminotransferase 76 43 (ALT/SGPT) Alkaline Phosphatase 91 47 Troponin I LESS THAN 0.02 Total Protein 7.9 4.9 Albumin 3.1 1.8 Lipase 181 74 Blood Type O POSITIVE Antibody Screen NEGATIVE Nasal Screen MRSA (PCR) MRSA DETECTED Differential Total Cells 100 Counted Neutrophils % (Manual) 57 Band Neutrophils % 35 Lymphocytes % 3 Monocytes % 5 Neutrophils # (Manual) 10.3 Platelet Estimate NORMAL Platelet Morphology Comment NORMAL Red Cell Morphology Comment NORMAL Fibrinogen 318 Protein Corrected Calcium 8.6 Phosphorus Level 2.7 Ammonia 29 Total Creatine Kinase 49 Date/Time Procedure Status Source Growth 06/22/17 19:28 Aerobic Blood Culture - Preliminary Resulted Blood Peripheral NO GROWTH IN 1 DAY 06/22/17 19:28 Anaerobic Blood Culture - Preliminary Resulted Blood Peripheral NO GROWTH IN 1 DAY Radiology Last Impressions Chest X-Ray 06/22/17 1851 Signed Impressions: Service Date/Time: Thursday, June 22, 2017 18:53 - CONCLUSION: No acute disease. Corby Herrera MD Abdomen/Pelvis CT 06/22/17 0000 Signed Impressions: Service Date/Time: Thursday, June 22, 2017 20:15 - CONCLUSION: 1. Free intraperitoneal air with moderate to severe ascites. 7.9 cm loculated abscess in the mesentery or lesser sac. Probable portal venous gas. Findings suspicious for perforated bowel. No definite obstruction. 2. Hiatal hernia with fluid in distal esophagus. Lung bases clear. Corby Herrera MD Narrative Exam NAD nonlabored breathing CV: bp stable, art line in place Abd: binder and bandage in place; lorena cloudy output; ng to suction Charles low uop A/P Assessment and Plan 61 yo M POD 1 s/p ex lap, repair perf duodenal ulcer. Stable post op. Cont ng and lorena. Bolus 1 L LR. Ok for ice chips. Lev/flagyl. BID protonix. Juancho Rubin MD Jun 23, 2017 15:46
[2017-06-23] MEDS ORDERED: LACTATED RINGER'S 1000 ML INJ 1,000 ML IV ONE (16:00)
[2017-06-23] MEDS ORDERED: DEXTROSE 50% IN WATER 50 ML SYRINGE ONE (23:25)
[2017-06-24] VITALS (9 sets, daily range): BP systolic 117–140; BP diastolic 73–83; PULSE 70–87; RESP 12–20; TEMP 96.3–98.4; O2SAT 1–100
[2017-06-24] MEDS: SODIUM CHLOR 0.9% 1000 ML INJ 1,000 ML IV SCH
[2017-06-24] MEDS: LEVOFLOXACIN 750 MG PREMIX INJ 150 ML IV SCH ×2 (00:45→23:57)
[2017-06-24] MEDS: CHLORHEXIDINE GLUCONATE 2 % 1 PACK (2 CLOTHS) TOP SCH (03:03)
[2017-06-24] MEDS: INSULIN NovoLIN REGULAR SUPPLEMENTAL SCALE SQ SCH ×6 (03:03→23:57)
[2017-06-24] MEDS: HEPARIN SODIUM - SQ 10,000 UNITS/ML VIAL SQ SCH ×2 (05:49→16:17)
[2017-06-24] MEDS: metroNIDAZOLE 500 MG INJ 100 ML IV SCH ×3 (05:50→21:06)
[2017-06-24] MEDS: PCA - TOTAL MG DILAUDID DELIVERED PER SHIFT OTHER SCH ×3 (06:00→21:06)
[2017-06-24] MEDS ORDERED: DEXTROSE 50% IN WATER 50 ML SYRINGE ONE (06:09)
[2017-06-24] MEDS: DEXT 5%-NACL 0.9% 1000 ML INJ 1,000 ML IV SCH ×3 (06:14→20:59)
[2017-06-24 07:20] LABS: AUTOMATED NEUTROPHIL # 9.7 TH/MM3 (1.8-7.7); EOSINOPHIL % 0.3 % (0.0-4.0); HEMO FLAGS DIFF FINAL; LYMPH % 10.6 % (9.0-44.0); LYMPHOCYTE # 1.2 TH/MM3 (1.0-4.8); MEAN CELL VOLUME 88.5 FL (80.0-100.0); MEAN CORPUSCULAR HEMOGLOBIN 30.5 PG (27.0-34.0); MEAN CORPUSCULAR HGB CONC 34.5 % (32.0-36.0); MONO % 6.5 % (0.0-8.0); NEUT % 82.6 % (16.0-70.0); PLATELET COUNT 127 TH/MM3 (150-450); RED CELL DISTRIBUTION WIDTH 15.5 % (11.6-17.2); WHITE BLOOD COUNT 11.7 TH/MM3 (4.0-11.0)
[2017-06-24 07:27] LABS: BICARBONATE 25.5 MEQ/L (21.0-32.0); POTASSIUM 3.9 MEQ/L (3.5-5.1)
[2017-06-24] MEDS: THIAMINE INJ 100 MG in SODIUM CHLORIDE 0.9% INJ 100 ML IV SCH (08:06)
[2017-06-24] MEDS: PANTOPRAZOLE SODIUM 40 MG VIAL IV SCH ×2 (08:06→21:06)
[2017-06-24] MEDS: SODIUM CHLORIDE 0.9% FLUSH 10 ML FLUSH IV FLUSH SCH ×2 (08:07→20:59)
[2017-06-24] MEDS: HYDROmorphone HCL PCA 6 MG/30 ML IV SCH ×4 (08:22→20:08)
--- NOTE | 2017-06-24 08:53 | HHI.PR ---
Subjective Remarks Follow up for perforated duodenal ulcer s/p repair by surgery. Patient is currently doing well. No fever, chills. Wants ice cream. Has persistent abdominal pain. NG tube in place. Objective Vitals Vital Signs Date Time Temp Pulse Resp B/P Pulse Ox O2 Delivery O2 Flow Rate FiO2 06/24/17 08:22 18 06/24/17 08:00 97.9 78 12 128/83 100 06/24/17 06:00 20 06/24/17 04:00 97.2 70 20 129/79 99 06/24/17 00:00 97.8 87 20 117/73 98 06/23/17 22:00 80 06/23/17 20:05 16 06/23/17 20:04 16 06/23/17 20:00 99 Nasal Cannula 3.00 06/23/17 20:00 98.5 88 17 117/62 99 06/23/17 17:10 95.8 99 17 124/86 99 06/23/17 16:00 98.4 89 13 129/67 99 06/23/17 15:00 73 06/23/17 14:00 10 06/23/17 13:00 10 06/23/17 12:30 12 06/23/17 12:00 98.4 84 11 129/83 100 I/O 06/23/17 06/23/17 06/23/17 06/24/17 06/24/17 06/24/17 06:59 14:59 22:59 06:59 14:59 22:59 Intake Total 6001 ml 928 ml 808 ml 1153 ml Output Total 920 ml 240 ml 670 ml 790 ml Balance 5081 ml 688 ml 138 ml 363 ml Intake Oral 20 ml 240 ml IV Total 601 ml 908 ml 568 ml 1153 ml Other 5400 ml Output Urine Total 250 ml 125 ml 400 ml 400 ml Gastric Drainage Total 50 ml 50 ml 50 ml 200 ml Drainage Total 120 ml 65 ml 220 ml 190 ml Estimated Blood Loss 100 ml Other 400 ml # Bowel Movements 0 0 Result Diagram: 06/24/17 0537 06/24/17 0537 Imaging Last Impressions Chest X-Ray 06/22/17 1851 Signed Impressions: Service Date/Time: Thursday, June 22, 2017 18:53 - CONCLUSION: No acute disease. Corby Herrera MD Abdomen/Pelvis CT 06/22/17 0000 Signed Impressions: Service Date/Time: Thursday, June 22, 2017 20:15 - CONCLUSION: 1. Free intraperitoneal air with moderate to severe ascites. 7.9 cm loculated abscess in the mesentery or lesser sac. Probable portal venous gas. Findings suspicious for perforated bowel. No definite obstruction. 2. Hiatal hernia with fluid in distal esophagus. Lung bases clear. Corby Herrera MD Objective Remarks GENERAL: AOX3, NAD SKIN: Warm and dry. HEAD: Normocephalic. EYES: No scleral icterus. No injection or drainage. NECK: Supple, trachea midline. No JVD or lymphadenopathy. CARDIOVASCULAR: Regular rate and rhythm without murmurs, gallops, or rubs. RESPIRATORY: Breath sounds equal bilaterally. No accessory muscle use. GASTROINTESTINAL: Abdomen soft, tender to palpation, nondistended. FLORENCE drain in place. NG tube in place. MUSCULOSKELETAL: No cyanosis, or edema. BACK: Nontender without obvious deformity. No CVA tenderness. Procedures Perforated duodenal ulcer repair A/P Problem List: (1) Perforated bowel ICD Code: K63.1 Status: Acute (2) History of ETOH abuse ICD Code: Z87.898 Status: Acute (3) Hyponatremia ICD Code: E87.1 Status: Acute (4) Polycythemia ICD Code: D75.1 Status: Acute (5) Lactic acidosis ICD Code: E87.2 Status: Acute (6) Sigmoid diverticulosis ICD Code: K57.30 Status: Chronic (7) Acute kidney injury ICD Code: N17.9 Status: Acute (8) Elevated AST (SGOT) ICD Code: R74.0 Status: Acute (9) Ascites ICD Code: R18.8 Status: Acute (10) History of hepatitis ICD Code: Z86.19 Status: Acute (11) Current tobacco use ICD Code: Z72.0 Status: Acute (12) Septic shock ICD Code: A41.9 Status: Acute (13) Chronic, continuous use of opioids ICD Code: F11.90 Status: Acute Assessment and Plan Mr. Sierra is a 61 year old male with a history of alcoholism, diverticulitis, GERD, IVDU who presented to the ED on 06/22/2017 with severe abdominal pain. He reported vomiting with small amount of blood. CT abdomen/pelvis showed free intraperitoneal air with moderate to severe ascites as well as a 7.9 cm loculated abscess in the mesentery or lesser sac. Perforated bowel was suspected. Patient underwent emergent surgical intervention by Dr. Martinez Rubin on 06/22/2017 and subsequently managed in the ICU. Patient's care was transferred to the hospitalist service on 06/24/2017. - Perforated duodenal ulcer - Pneumoperitoneum - Gastroesophageal reflux disease - Loculated intra-abdominal abscess - s/p Ex lap, repair of perforated duodenal ulcer. - Continue Levaquin 750mg IV Qday, Flagyl 500mg IV Q8hrs. - Continue Dilaudid HELPDESK ADMINISTRATOR. - Lactic acid 5.9 --> 1.3. - Protonix 40mg IV Q12hrs. - Surgery closely following. - Acute kidney injury - Hyponatremia - resolved. - Improved. Creatinine 1.70 --> 0.73. - Na improved from 130 --> 140. - Alcohol abuse - IV Drug abuse - Patient has been counselled. Full code. Heparin 5000 units Q12hrs. Problem Qualifiers (1) Ascites: Qualified Code: R18.8 - Other ascites Jennifer Lyon DO Jun 24, 2017 08:53
--- NOTE | 2017-06-24 11:51 | HHI.PR ---
Subjective Subjective Notes He c/o pain and phlegm in his throat. Stable. Objective Vitals/I&O Vital Signs Date Time Temp Pulse Resp B/P Pulse Ox O2 Delivery O2 Flow Rate FiO2 06/24/17 08:22 18 06/24/17 08:00 78 06/24/17 08:00 97.9 128/83 100 06/23/17 20:00 Nasal Cannula 3.00 06/23/17 01:00 40 Labs Laboratory Tests Test 06/24/17 05:37 White Blood Count 11.7 Red Blood Count 4.40 Hemoglobin 13.4 Hematocrit 39.0 Mean Corpuscular Volume 88.5 Mean Corpuscular Hemoglobin 30.5 Mean Corpuscular Hemoglobin 34.5 Concent Red Cell Distribution Width 15.5 Platelet Count 127 Mean Platelet Volume 9.6 Neutrophils (%) (Auto) 82.6 Lymphocytes (%) (Auto) 10.6 Monocytes (%) (Auto) 6.5 Eosinophils (%) (Auto) 0.3 Basophils (%) (Auto) 0.0 Neutrophils # (Auto) 9.7 Lymphocytes # (Auto) 1.2 Monocytes # (Auto) 0.8 Eosinophils # (Auto) 0.0 Basophils # (Auto) 0.0 CBC Comment DIFF FINAL Differential Comment Sodium Level 140 Potassium Level 3.9 Chloride Level 108 Carbon Dioxide Level 25.5 Anion Gap 7 Blood Urea Nitrogen 25 Creatinine 0.73 Estimat Glomerular Filtration 110 Rate Random Glucose 67 Calcium Level 7.8 Date/Time Procedure Status Source Growth 06/22/17 19:28 Aerobic Blood Culture - Preliminary Resulted Blood Peripheral NO GROWTH IN 2 DAYS 06/22/17 19:28 Anaerobic Blood Culture - Preliminary Resulted Blood Peripheral NO GROWTH IN 2 DAYS Radiology Last Impressions Chest X-Ray 06/22/17 1851 Signed Impressions: Service Date/Time: Thursday, June 22, 2017 18:53 - CONCLUSION: No acute disease. Corby Herrera MD Abdomen/Pelvis CT 06/22/17 0000 Signed Impressions: Service Date/Time: Thursday, June 22, 2017 20:15 - CONCLUSION: 1. Free intraperitoneal air with moderate to severe ascites. 7.9 cm loculated abscess in the mesentery or lesser sac. Probable portal venous gas. Findings suspicious for perforated bowel. No definite obstruction. 2. Hiatal hernia with fluid in distal esophagus. Lung bases clear. Corby Herrera MD Narrative Exam NAD nonlabored breathing Abd: binder and bandage in place; lorena cloudy output; ng to suction Charles dark yellow urine A/P Assessment and Plan 61 yo M POD 2 s/p ex lap, repair perf duodenal ulcer. Stable post op. Cont ng and lorena. Bolus 1 L LR. Ok for ice chips. Lev/flagyl. BID protonix. UGI tomorrow to eval repair. Juancho Rubin MD Jun 24, 2017 11:51
[2017-06-24] MEDS ORDERED: PHENOL 1.4% SOLN 180 ML BTL OROPHARYNG PRN (12:00)
[2017-06-24] MEDS ORDERED: LACTATED RINGER'S 1000 ML INJ 1,000 ML IV ONE (12:00)
--- NOTE | 2017-06-24 12:53 | PD.OP ---
cc: Juancho Rubin MD Operative Report Date of Surgery: Jun 22, 2017 Preoperative Diagnosis: (1) Perforated bowel Postoperative Diagnosis: (1) Duodenal ulcer with perforation Procedure: Exploratory laparotomy Repair of perforated duodenal ulcer Surgeon: Juancho Rubin Cupola Tapper(s): Jazmyn Shepadr CFA Operation and Findings: EBL: 50 cc Operative findings: The patient had over 2 L of brown cloudy fluid in the abdomen. The lesser sac was full of thick dark pasty material. A perforated full-thickness ulcer of the posterior first portion of the duodenum was encountered. Procedure in detail: The patient was taken to the operating room placed in supine position. General endotracheal anesthesia was induced. The abdomen was prepped and draped in usual sterile fashion and a surgical timeout was performed verifying correct patient and procedure site. A midline laparotomy incision was made. Dissection was carried out through the underlying fascia with electrocautery and the peritoneum entered sharply. There is about 2 and half liters of brown cloudy fluid suctioned from the abdomen. It was not foul- smelling. The lesser sac had spontaneously opened in the area of the gastrocolic omentum and there was thick dark pasty material in the lesser sac. This was scooped out. I underwent exploration of the abdomen. The colon appeared normal. There was a significant amount of stool in the cecum. The stomach was not indurated and initially there was no evidence of ulcer. Further exploration I took down the gastrocolic omentum to meticulously explore the lesser sac. The posterior stomach was intact. The pancreas was intact. There was edema in all the surrounding tissues. Finally on further exploration there was noted to be a full-thickness approximately 1 cm ulcer in the posterior first portion of the duodenum just distal to the pylorus. The area was not indurated. I closed the ulcer with 3-0 silk sutures interrupted in transverse fashion and there was no tension. A finger of omentum was brought down with its blood supply intact and loosely tied over the area of the ulcer. The entire abdomen was copiously irrigated with 5 L of warm normal saline. A 19 English round drain was placed through the left upper abdomen into the lesser sac and sutured in place with 3-0 nylon. The abdomen was then closed with #1 looped PDS suture and skin tal. Dry dressing was applied. The patient tolerated the procedure well was extubated and taken to PACU in stable condition. Juancho Rubin MD Jun 24, 2017 12:53
[2017-06-24] MEDS: RESP: ACETYLCYSTEINE 10% 30 ML NEB NEB SCH (23:38)
[2017-06-25] VITALS (9 sets, daily range): BP systolic 133–155; BP diastolic 67–90; PULSE 64–96; RESP 16–18; TEMP 96.8–98.8; O2SAT 92–99
[2017-06-25] MEDS: HYDROmorphone HCL PCA 6 MG/30 ML IV SCH ×7 (02:05→23:52)
[2017-06-25] MEDS: RESP: ALBUTEROL 2.5 MG/IPRATROPIUM 0.5 MG NEB (PRN) NEB ×5 (03:48→19:12)
[2017-06-25] MEDS: RESP: ACETYLCYSTEINE 10% 30 ML NEB NEB SCH ×5 (03:48→19:12)
[2017-06-25] MEDS: CHLORHEXIDINE GLUCONATE 2 % 1 PACK (2 CLOTHS) TOP SCH (04:00)
[2017-06-25] MEDS: INSULIN NovoLIN REGULAR SUPPLEMENTAL SCALE SQ SCH ×6 (04:00→23:53)
[2017-06-25] MEDS: metroNIDAZOLE 500 MG INJ 100 ML IV SCH ×3 (05:27→20:23)
[2017-06-25] MEDS: HEPARIN SODIUM - SQ 10,000 UNITS/ML VIAL SQ SCH ×2 (05:27→16:36)
[2017-06-25] MEDS: DEXT 5%-NACL 0.9% 1000 ML INJ 1,000 ML IV SCH ×3 (05:41→20:24)
[2017-06-25] MEDS: PCA - TOTAL MG DILAUDID DELIVERED PER SHIFT OTHER SCH ×3 (06:00→20:18)
[2017-06-25] MEDS: PANTOPRAZOLE SODIUM 40 MG VIAL IV SCH ×2 (08:48→20:22)
[2017-06-25] MEDS: THIAMINE INJ 100 MG in SODIUM CHLORIDE 0.9% INJ 100 ML IV SCH (08:49)
--- NOTE | 2017-06-25 08:55 | HHI.PR ---
Subjective Remarks Follow up for perforated duodenal ulcer s/p repair by surgery. Patient is doing well. Denies any fever, chills. He wants to get some ice cream or even popsicle. Objective Vitals Vital Signs Date Time Temp Pulse Resp B/P Pulse Ox O2 Delivery O2 Flow Rate FiO2 06/25/17 08:07 99 Nasal Cannula 1.00 06/25/17 08:00 97.5 72 18 136/79 98 06/25/17 07:20 16 06/25/17 06:50 16 06/25/17 06:00 16 06/25/17 04:00 98.3 72 16 135/67 93 06/25/17 03:54 98 Nasal Cannula 1.00 06/25/17 02:05 16 06/25/17 00:00 98.5 64 16 140/71 97 06/24/17 22:00 72 06/24/17 21:06 18 06/24/17 20:08 18 06/24/17 20:00 98.4 74 18 140/78 97 06/24/17 16:18 99 Nasal Cannula 1.00 06/24/17 16:17 18 06/24/17 16:00 97.4 74 16 134/73 97 06/24/17 14:00 18 06/24/17 12:39 18 06/24/17 12:00 96.3 71 18 132/76 99 06/24/17 11:57 100 Nasal Cannula 1.00 I/O 06/24/17 06/24/17 06/24/17 06/25/17 06/25/17 06/25/17 07:00 15:00 23:00 07:00 15:00 23:00 Intake Total 1153 ml 2348 ml 1264 ml 494 ml Output Total 790 ml 1050 ml 570 ml 740 ml Balance 363 ml 1298 ml 694 ml -246 ml Intake Oral 360 ml IV Total 1153 ml 988 ml 1264 ml 494 ml Other 1000 ml Output Urine Total 400 ml 800 ml 200 ml 400 ml Gastric Drainage Total 200 ml 200 ml 100 ml Drainage Total 190 ml 250 ml 170 ml 240 ml # Bowel Movements 0 0 Result Diagram: 06/24/17 0537 06/24/17 0537 Imaging Last Impressions Chest X-Ray 06/22/17 8508 Signed Impressions: Service Date/Time: Thursday, June 22, 2017 18:53 - CONCLUSION: No acute disease. Corby Herrera MD Abdomen/Pelvis CT 06/22/17 0000 Signed Impressions: Service Date/Time: Thursday, June 22, 2017 20:15 - CONCLUSION: 1. Free intraperitoneal air with moderate to severe ascites. 7.9 cm loculated abscess in the mesentery or lesser sac. Probable portal venous gas. Findings suspicious for perforated bowel. No definite obstruction. 2. Hiatal hernia with fluid in distal esophagus. Lung bases clear. Corby Herrera MD Objective Remarks GENERAL: AOX3, NAD SKIN: Warm and dry. HEAD: Normocephalic. EYES: No scleral icterus. No injection or drainage. NECK: Supple, trachea midline. No JVD or lymphadenopathy. CARDIOVASCULAR: Regular rate and rhythm without murmurs, gallops, or rubs. RESPIRATORY: Breath sounds equal bilaterally. No accessory muscle use. GASTROINTESTINAL: Abdomen soft, tender to palpation, nondistended. FLORENCE drain in place. NG tube in place. MUSCULOSKELETAL: No cyanosis, or edema. BACK: Nontender without obvious deformity. No CVA tenderness. Procedures Perforated duodenal ulcer repair A/P Problem List: (1) Perforated bowel ICD Code: K63.1 Status: Acute (2) History of ETOH abuse ICD Code: Z87.898 Status: Acute (3) Hyponatremia ICD Code: E87.1 Status: Acute (4) Polycythemia ICD Code: D75.1 Status: Acute (5) Lactic acidosis ICD Code: E87.2 Status: Acute (6) Sigmoid diverticulosis ICD Code: K57.30 Status: Chronic (7) Acute kidney injury ICD Code: N17.9 Status: Acute (8) Elevated AST (SGOT) ICD Code: R74.0 Status: Acute (9) Ascites ICD Code: R18.8 Status: Acute (10) History of hepatitis ICD Code: Z86.19 Status: Acute (11) Current tobacco use ICD Code: Z72.0 Status: Acute (12) Septic shock ICD Code: A41.9 Status: Acute (13) Chronic, continuous use of opioids ICD Code: F11.90 Status: Acute Assessment and Plan Mr. Sierra is a 61 year old male with a history of alcoholism, diverticulitis, GERD, IVDU who presented to the ED on 06/22/2017 with severe abdominal pain. He reported vomiting with small amount of blood. CT abdomen/pelvis showed free intraperitoneal air with moderate to severe ascites as well as a 7.9 cm loculated abscess in the mesentery or lesser sac. Perforated bowel was suspected. Patient underwent emergent surgical intervention by Dr. Martinez Rubin on 06/22/2017 and subsequently managed in the ICU. Patient's care was transferred to the hospitalist service on 06/24/2017. - Perforated duodenal ulcer - Pneumoperitoneum - Gastroesophageal reflux disease - Loculated intra-abdominal abscess - s/p Ex lap, repair of perforated duodenal ulcer. - Continue Levaquin 750mg IV Qday, Flagyl 500mg IV Q8hrs. 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 - Lactic acid 5.9 --> 1.3. - Protonix 40mg IV Q12hrs. - Surgery closely following. Diet changes per surgery. - Acute kidney injury - Hyponatremia - resolved. - Improved. Creatinine 1.70 --> 0.73. - Na improved from 130 --> 140. - Alcohol abuse - IV Drug abuse - Patient has been counselled. - Deconditioning - Will request daily PT Full code. Heparin 5000 units Q12hrs. Problem Qualifiers (1) Ascites: Qualified Code: R18.8 - Other ascites Jennifer Lyon DO Jun 25, 2017 8:55 am
[2017-06-25] MEDS: SODIUM CHLORIDE 0.9% FLUSH 10 ML FLUSH IV FLUSH SCH ×2 (09:00→20:22)
[2017-06-25] MEDS ORDERED: DIATRIZOATE MEGLUM/DIATRIZOATE SOD 120 ML BTL (for RAD DIAG) NG ONE (10:00)
--- NOTE | 2017-06-25 14:42 | RADRPT ---
EXAM DATE/TIME: 06/25/2017 09:18 [facility] COMPARISON: No previous studies available for comparison. INDICATIONS : Evaluate post op repair of perforated duodenal ulcer, severe abdominal pain FLUORO TIME: 3.6 minutes IMAGE COUNT: 5 CONTRAST: 1. MD Mclean MEDICAL HISTORY : Hiatal hernia. perforated duodenal ulcer SURGICAL HISTORY : repair of duodenal ulcer ENCOUNTER: Subsequent ACUITY: 3 days PAIN SCORE: 10/10 LOCATION: Bilateral abdomen FINDINGS: Preliminary film demonstrates a nonspecific bowel gas pattern. There is evidence of recent abdominal surgery. There is an NG tube in the stomach. There is a catheter overlying the mid to lower abdomen.. Contrast (Gastrografin) was placed to the NG tube. There is good filling of the stomach. There is nor mal gastric motility with flow into the proximal small bowel. There is no evidence of obstruction or leakage.. CONCLUSION: No evidence of obstruction or leakage status post surgery. Sal Cline MD on June 25, 2017 at 14:39 Board Certified Radiologist. This report was verified electronically.
--- NOTE | 2017-06-25 16:26 | HHI.PR ---
Subjective Subjective Notes He requests popsicles. Otherwise doing well. UGI showed no leak. Objective Vitals/I&O Vital Signs Date Time Temp Pulse Resp B/P Pulse Ox O2 Delivery O2 Flow Rate FiO2 06/25/17 16:00 96.8 85 17 155/90 92 06/25/17 15:26 Nasal Cannula 1.00 06/23/17 01:00 40 Labs Date/Time Procedure Status Source Growth 06/22/17 19:28 Aerobic Blood Culture - Preliminary Resulted Blood Peripheral NO GROWTH IN 3 DAYS 06/22/17 19:28 Anaerobic Blood Culture - Preliminary Resulted Blood Peripheral NO GROWTH IN 3 DAYS Radiology Last Impressions Chest X-Ray 06/22/17 1851 Signed Impressions: Service Date/Time: Thursday, June 22, 2017 18:53 - CONCLUSION: No acute disease. Corby Herrera MD Abdomen/Pelvis CT 06/22/17 0000 Signed Impressions: Service Date/Time: Thursday, June 22, 2017 20:15 - CONCLUSION: 1. Free intraperitoneal air with moderate to severe ascites. 7.9 cm loculated abscess in the mesentery or lesser sac. Probable portal venous gas. Findings suspicious for perforated bowel. No definite obstruction. 2. Hiatal hernia with fluid in distal esophagus. Lung bases clear. Corby Herrera MD Narrative Exam NAD nonlabored breathing Abd: inc c/d/i; lorena cloudy output; ng to suction Mart yellow urine A/P Assessment and Plan 61 yo M POD 3 s/p ex lap, repair perf duodenal ulcer. Stable post op. UGI ok. D/c ng. D/c mart. Lev/flagyl. BID protonix. Juancho Rubin MD Jun 25, 2017 16:26
[2017-06-25] MEDS: LEVOFLOXACIN 750 MG PREMIX INJ 150 ML IV SCH (23:44)
[2017-06-26] VITALS (9 sets, daily range): BP systolic 122–149; BP diastolic 73–92; PULSE 64–86; RESP 16–18; TEMP 97.7–99.6; O2SAT 91–96
[2017-06-26] MEDS: RESP: ACETYLCYSTEINE 10% 30 ML NEB NEB SCH ×6 (00:04→19:08)
[2017-06-26] MEDS: HYDROmorphone HCL PCA 6 MG/30 ML IV SCH ×5 (03:23→20:35)
[2017-06-26] MEDS: INSULIN NovoLIN REGULAR SUPPLEMENTAL SCALE SQ SCH ×5 (04:00→20:00)
[2017-06-26] MEDS: CHLORHEXIDINE GLUCONATE 2 % 1 PACK (2 CLOTHS) TOP SCH (04:00)
[2017-06-26] MEDS: HEPARIN SODIUM - SQ 10,000 UNITS/ML VIAL SQ SCH ×2 (05:57→17:16)
[2017-06-26] MEDS: PCA - TOTAL MG DILAUDID DELIVERED PER SHIFT OTHER SCH ×3 (05:58→20:27)
[2017-06-26] MEDS: metroNIDAZOLE 500 MG INJ 100 ML IV SCH ×3 (05:58→20:25)
[2017-06-26] MEDS: DEXT 5%-NACL 0.9% 1000 ML INJ 1,000 ML IV SCH ×3 (05:58→20:25)
[2017-06-26 07:14] LABS: AUTOMATED NEUTROPHIL # 6.5 TH/MM3 (1.8-7.7); BASOPHIL % 0.4 % (0.0-2.0); EOSINOPHIL # 0.1 TH/MM3 (0-0.4); EOSINOPHIL % 1.5 % (0.0-4.0); HEMATOCRIT 38.7 % (39.0-51.0); HEMO FLAGS DIFF FINAL; LYMPH % 16.2 % (9.0-44.0); LYMPHOCYTE # 1.4 TH/MM3 (1.0-4.8); MEAN CELL VOLUME 88.5 FL (80.0-100.0); MEAN CORPUSCULAR HEMOGLOBIN 30.6 PG (27.0-34.0); MEAN CORPUSCULAR HGB CONC 34.6 % (32.0-36.0); MONO % 8.3 % (0.0-8.0); NEUT % 73.6 % (16.0-70.0); PLATELET COUNT 141 TH/MM3 (150-450); RED BLOOD COUNT 4.37 MIL/MM3 (4.50-5.90); RED CELL DISTRIBUTION WIDTH 14.6 % (11.6-17.2); WHITE BLOOD COUNT 8.8 TH/MM3 (4.0-11.0)
[2017-06-26 07:37] LABS: BICARBONATE 32.2 MEQ/L (21.0-32.0); POTASSIUM 3.1 MEQ/L (3.5-5.1)
[2017-06-26] MEDS: RESP: ALBUTEROL 2.5 MG/IPRATROPIUM 0.5 MG NEB (PRN) NEB ×3 (08:24→19:08)
[2017-06-26] MEDS: SODIUM CHLORIDE 0.9% FLUSH 10 ML FLUSH IV FLUSH SCH ×2 (09:00→20:27)
[2017-06-26] MEDS: PANTOPRAZOLE SODIUM 40 MG VIAL IV SCH ×2 (09:29→20:26)
[2017-06-26] MEDS: THIAMINE INJ 100 MG in SODIUM CHLORIDE 0.9% INJ 100 ML IV SCH (09:38)
--- NOTE | 2017-06-26 13:22 | HHI.PR ---
Subjective Subjective Notes C/o pain. Wants a milkshake. Objective Vitals/I&O Vital Signs Date Time Temp Pulse Resp B/P Pulse Ox O2 Delivery O2 Flow Rate FiO2 06/26/17 12:00 99.4 81 16 122/86 95 06/26/17 08:26 21 06/25/17 15:26 Nasal Cannula 1.00 Labs Laboratory Tests Test 06/26/17 03:40 White Blood Count 8.8 Red Blood Count 4.37 Hemoglobin 13.4 Hematocrit 38.7 Mean Corpuscular Volume 88.5 Mean Corpuscular Hemoglobin 30.6 Mean Corpuscular Hemoglobin 34.6 Concent Red Cell Distribution Width 14.6 Platelet Count 141 Mean Platelet Volume 9.2 Neutrophils (%) (Auto) 73.6 Lymphocytes (%) (Auto) 16.2 Monocytes (%) (Auto) 8.3 Eosinophils (%) (Auto) 1.5 Basophils (%) (Auto) 0.4 Neutrophils # (Auto) 6.5 Lymphocytes # (Auto) 1.4 Monocytes # (Auto) 0.7 Eosinophils # (Auto) 0.1 Basophils # (Auto) 0.0 CBC Comment DIFF FINAL Differential Comment Sodium Level 141 Potassium Level 3.1 Chloride Level 103 Carbon Dioxide Level 32.2 Anion Gap 6 Blood Urea Nitrogen 10 Creatinine 0.61 Estimat Glomerular Filtration 135 Rate Random Glucose 83 Calcium Level 7.8 Date/Time Procedure Status Source Growth 06/22/17 19:28 Aerobic Blood Culture - Preliminary Resulted Blood Peripheral NO GROWTH IN 4 DAYS 06/22/17 19:28 Anaerobic Blood Culture - Preliminary Resulted Blood Peripheral NO GROWTH IN 4 DAYS Radiology Last Impressions Chest X-Ray 06/22/17 1851 Signed Impressions: Service Date/Time: Thursday, June 22, 2017 18:53 - CONCLUSION: No acute disease. Corby Herrera MD Abdomen/Pelvis CT 06/22/17 0000 Signed Impressions: Service Date/Time: Thursday, June 22, 2017 20:15 - CONCLUSION: 1. Free intraperitoneal air with moderate to severe ascites. 7.9 cm loculated abscess in the mesentery or lesser sac. Probable portal venous gas. Findings suspicious for perforated bowel. No definite obstruction. 2. Hiatal hernia with fluid in distal esophagus. Lung bases clear. Corby Herrera MD Narrative Exam NAD nonlabored breathing Abd: inc c/d/i; lorena clear serous output, mod distention A/P Assessment and Plan 61 yo M POD 4 s/p ex lap, repair perf duodenal ulcer. Stable post op. Clears. Lev/flagyl. BID protonix. Juancho Rubin MD Jun 26, 2017 13:22
[2017-06-26] MEDS ORDERED: MAGNESIUM HYDROXIDE SUSP 30 ML CUP PO ONE (13:30)
--- NOTE | 2017-06-26 22:26 | HHI.PR ---
Subjective Remarks Follow up for perforated duodenal ulcer s/p repair by surgery. NG tube, mart cath discontinued yesterday. Patient denies any fever, chills. Still has significant pain when he coughs. Wants to have milkshake or ensure. Objective Vitals Vital Signs Date Time Temp Pulse Resp B/P Pulse Ox O2 Delivery O2 Flow Rate FiO2 06/26/17 20:35 18 06/26/17 20:27 18 06/26/17 20:00 99.6 86 16 140/73 95 06/26/17 16:00 99.2 73 16 142/85 96 06/26/17 14:21 16 06/26/17 12:00 99.4 81 16 122/86 95 06/26/17 10:10 64 06/26/17 10:00 14 06/26/17 09:59 14 06/26/17 08:26 93 21 06/26/17 08:00 98.6 77 16 149/92 91 06/26/17 07:25 Room Air 06/26/17 06:32 18 06/26/17 05:58 18 06/26/17 04:00 98.2 80 18 143/85 95 06/26/17 03:35 96 06/26/17 03:23 18 06/26/17 00:00 97.7 82 18 137/77 93 06/25/17 23:52 18 I/O 06/25/17 06/25/17 06/25/17 06/26/17 06/26/17 06/26/17 06:59 14:59 22:59 06:59 14:59 22:59 Intake Total 494 ml 792 ml 571 ml 997 ml 0 ml Output Total 740 ml 790 ml 660 ml 440 ml 900 ml Balance -246 ml 2 ml -89 ml 557 ml -900 ml Intake Oral 0 ml IV Total 494 ml 792 ml 571 ml 997 ml Output Urine Total 400 ml 400 ml 200 ml 700 ml Gastric Drainage Total 100 ml 500 ml Drainage Total 240 ml 290 ml 260 ml 240 ml 200 ml # Bowel Movements 0 Result Diagram: 06/26/17 0340 06/26/17 0340 Imaging Last Impressions Upper GI Series 06/25/17 0000 Signed Impressions: Service Date/Time: June 09:18 - CONCLUSION: No evidence of obstruction or leakage status post surgery. Sal J. Siragusa, MD Chest X-Ray 06/22/17 1851 Signed Impressions: Service Date/Time: Thursday, June 22, 2017 18:53 - CONCLUSION: No acute disease. Corby Herrera MD Abdomen/Pelvis CT 06/22/17 0000 Signed Impressions: Service Date/Time: Thursday, June 22, 2017 20:15 - CONCLUSION: 1. Free intraperitoneal air with moderate to severe ascites. 7.9 cm loculated abscess in the mesentery or lesser sac. Probable portal venous gas. Findings suspicious for perforated bowel. No definite obstruction. 2. Hiatal hernia with fluid in distal esophagus. Lung bases clear. Corby Herrera MD Objective Remarks GENERAL: AOX3, NAD SKIN: Warm and dry. HEAD: Normocephalic. EYES: No scleral icterus. No injection or drainage. NECK: Supple, trachea midline. No JVD or lymphadenopathy. CARDIOVASCULAR: Regular rate and rhythm without murmurs, gallops, or rubs. RESPIRATORY: Breath sounds equal bilaterally. No accessory muscle use. GASTROINTESTINAL: Abdomen soft, tender to palpation, nondistended. FLORENCE drain in place. NG tube in place. MUSCULOSKELETAL: No cyanosis, or edema. BACK: Nontender without obvious deformity. No CVA tenderness. Procedures Perforated duodenal ulcer repair A/P Problem List: (1) Perforated bowel ICD Code: K63.1 Status: Acute (2) History of ETOH abuse ICD Code: Z87.898 Status: Acute (3) Hyponatremia ICD Code: E87.1 Status: Acute (4) Polycythemia ICD Code: D75.1 Status: Acute (5) Lactic acidosis ICD Code: E87.2 Status: Acute (6) Sigmoid diverticulosis ICD Code: K57.30 Status: Chronic (7) Acute kidney injury ICD Code: N17.9 Status: Acute (8) Elevated AST (SGOT) ICD Code: R74.0 Status: Acute (9) Ascites ICD Code: R18.8 Status: Acute (10) History of hepatitis ICD Code: Z86.19 Status: Acute (11) Current tobacco use ICD Code: Z72.0 Status: Acute (12) Septic shock ICD Code: A41.9 Status: Acute (13) Chronic, continuous use of opioids ICD Code: F11.90 Status: Acute Assessment and Plan Mr. Sierra is a 61 year old male with a history of alcoholism, diverticulitis, GERD, IVDU who presented to the ED on 06/22/2017 with severe abdominal pain. He reported vomiting with small amount of blood. CT abdomen/pelvis showed free intraperitoneal air with moderate to severe ascites as well as a 7.9 cm loculated abscess in the mesentery or lesser sac. Perforated bowel was suspected. Patient underwent emergent surgical intervention by Dr. Martinez Rubin on 06/22/2017 and subsequently managed in the ICU. Patient's care was transferred to the hospitalist service on 06/24/2017. - Perforated duodenal ulcer - Pneumoperitoneum - Gastroesophageal reflux disease - Loculated intra-abdominal abscess - s/p Ex lap, repair of perforated duodenal ulcer. - Continue Levaquin 750mg IV Qday, Flagyl 500mg IV Q8hrs. 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 - Lactic acid 5.9 --> 1.3. - Protonix 40mg IV Q12hrs. - Surgery closely following. Surgery started clear liquid diet today. - Acute kidney injury - Hyponatremia - resolved. - Hypokalemia - K+ 3.1 today. - Improved. Creatinine 1.70 --> 0.61 - Na improved from 130 --> 141. - Alcohol abuse - IV Drug abuse - Patient has been counselled. - Deconditioning - Will request daily PT Full code. Heparin 5000 units Q12hrs. Problem Qualifiers (1) Ascites: Qualified Code: R18.8 - Other ascites Jennifer Lyon DO Jun 26, 2017 22:26
[2017-06-27] VITALS (9 sets, daily range): BP systolic 103–168; BP diastolic 64–94; PULSE 66–106; RESP 16–20; TEMP 97.5–99.6; O2SAT 93–96
[2017-06-27] MEDS: RESP: ACETYLCYSTEINE 10% 30 ML NEB NEB SCH ×6 (00:35→20:39)
[2017-06-27] MEDS: RESP: ALBUTEROL 2.5 MG/IPRATROPIUM 0.5 MG NEB (PRN) NEB ×5 (00:35→20:39)
[2017-06-27] MEDS: HYDROmorphone HCL PCA 6 MG/30 ML IV SCH ×5 (01:11→22:18)
[2017-06-27] MEDS: LEVOFLOXACIN 750 MG PREMIX INJ 150 ML IV SCH (01:12)
[2017-06-27] MEDS: CHLORHEXIDINE GLUCONATE 2 % 1 PACK (2 CLOTHS) TOP SCH (04:00)
[2017-06-27] MEDS: INSULIN NovoLIN REGULAR SUPPLEMENTAL SCALE SQ SCH ×6 (04:00→20:00)
[2017-06-27] MEDS: HEPARIN SODIUM - SQ 10,000 UNITS/ML VIAL SQ SCH ×2 (05:14→16:09)
[2017-06-27] MEDS: PCA - TOTAL MG DILAUDID DELIVERED PER SHIFT OTHER SCH ×3 (05:15→22:00)
[2017-06-27] MEDS: DEXT 5%-NACL 0.9% 1000 ML INJ 1,000 ML IV SCH ×2 (05:16→20:50)
[2017-06-27] MEDS: metroNIDAZOLE 500 MG INJ 100 ML IV SCH ×3 (05:19→20:50)
--- NOTE | 2017-06-27 08:30 | HHI.PR ---
Subjective Subjective Notes He has had some flatus. + belching. Tolerating clears. Objective Vitals/I&O Vital Signs Date Time Temp Pulse Resp B/P Pulse Ox O2 Delivery O2 Flow Rate FiO2 06/27/17 05:15 18 06/27/17 04:00 98.1 66 138/84 95 06/26/17 08:26 21 06/26/17 07:25 Room Air 06/25/17 15:26 1.00 Labs Date/Time Procedure Status Source Growth 06/22/17 19:28 Aerobic Blood Culture - Preliminary Resulted Blood Peripheral NO GROWTH IN 4 DAYS 06/22/17 19:28 Anaerobic Blood Culture - Preliminary Resulted Blood Peripheral NO GROWTH IN 4 DAYS Radiology Last Impressions Chest X-Ray 06/22/17 1851 Signed Impressions: Service Date/Time: Thursday, June 22, 2017 18:53 - CONCLUSION: No acute disease. Corby Herrera MD Abdomen/Pelvis CT 06/22/17 0000 Signed Impressions: Service Date/Time: Thursday, June 22, 2017 20:15 - CONCLUSION: 1. Free intraperitoneal air with moderate to severe ascites. 7.9 cm loculated abscess in the mesentery or lesser sac. Probable portal venous gas. Findings suspicious for perforated bowel. No definite obstruction. 2. Hiatal hernia with fluid in distal esophagus. Lung bases clear. Corby Herrera MD Narrative Exam NAD nonlabored breathing Abd: inc c/d/i; lorena cloudy output, mod distention A/P Assessment and Plan 61 yo M POD 5 s/p ex lap, repair perf duodenal ulcer. Stable post op. Full half heel gouger dose and will stop tomorrow. Start oxycodone. Lev/flagyl. BID protonix. Juancho Rubin MD Jun 27, 2017 08:30
[2017-06-27 08:57] LABS: BASOPHIL % 0.3 % (0.0-2.0); EOSINOPHIL # 0.2 TH/MM3 (0-0.4); EOSINOPHIL % 1.9 % (0.0-4.0); HEMATOCRIT 43.5 % (39.0-51.0); HEMO FLAGS DIFF FINAL; LYMPH % 18.1 % (9.0-44.0); MEAN CELL VOLUME 89.4 FL (80.0-100.0); MEAN CORPUSCULAR HEMOGLOBIN 29.5 PG (27.0-34.0); MEAN CORPUSCULAR HGB CONC 32.9 % (32.0-36.0); MONO % 7.9 % (0.0-8.0); NEUT % 71.8 % (16.0-70.0); PLATELET COUNT 190 TH/MM3 (150-450); RED BLOOD COUNT 4.87 MIL/MM3 (4.50-5.90); RED CELL DISTRIBUTION WIDTH 14.6 % (11.6-17.2); WHITE BLOOD COUNT 11.1 TH/MM3 (4.0-11.0)
[2017-06-27] MEDS: SODIUM CHLORIDE 0.9% FLUSH 10 ML FLUSH IV FLUSH SCH ×2 (09:00→20:50)
[2017-06-27 09:24] LABS: BICARBONATE 29.8 MEQ/L (21.0-32.0); CALCIUM-PROTEIN CORRECTED 8.3 MG/DL (8.5-10.1); POTASSIUM 3.4 MEQ/L (3.5-5.1); TOTAL BILIRUBIN ADULT 0.9 MG/DL (0.2-1.0)
[2017-06-27] MEDS: PANTOPRAZOLE SODIUM 40 MG VIAL IV SCH ×2 (10:20→20:50)
[2017-06-27] MEDS: THIAMINE INJ 100 MG in SODIUM CHLORIDE 0.9% INJ 100 ML IV SCH (10:20)
--- NOTE | 2017-06-27 11:51 | HHI.PR ---
Subjective Remarks low calcium low potassium c/o abdominal pain - requesting increase in pain medications requesting ensure Objective Vitals Vital Signs Date Time Temp Pulse Resp B/P Pulse Ox O2 Delivery O2 Flow Rate FiO2 06/27/17 10:36 14 06/27/17 08:00 97.8 81 18 137/82 96 06/27/17 05:15 18 06/27/17 05:15 18 06/27/17 04:00 98.1 66 16 138/84 95 06/27/17 01:33 127/92 06/27/17 01:11 18 06/27/17 00:40 96 06/27/17 00:00 98.8 67 16 168/87 93 06/26/17 20:35 18 06/26/17 20:27 18 06/26/17 20:00 77 06/26/17 20:00 99.6 86 16 140/73 95 06/26/17 16:00 99.2 73 16 142/85 96 06/26/17 14:21 16 06/26/17 12:00 99.4 81 16 122/86 95 I/O 06/26/17 06/26/17 06/26/17 06/27/17 06/27/17 06/27/17 07:00 15:00 23:00 07:00 15:00 23:00 Intake Total 997 ml 0 ml 1551 ml 1043 ml Output Total 440 ml 900 ml 760 ml 360 ml Balance 557 ml -900 ml 791 ml 683 ml Intake Oral 0 ml IV Total 997 ml 1551 ml 1043 ml Output Urine Total 200 ml 700 ml 650 ml 250 ml Drainage Total 240 ml 200 ml 110 ml 110 ml # Bowel Movements 0 Result Diagram: 06/27/17 0845 06/27/17 0845 Objective Remarks GENERAL: AOX3, NAD SKIN: Warm and dry. HEAD: Normocephalic. EYES: No scleral icterus. No injection or drainage. NECK: Supple, trachea midline. No JVD or lymphadenopathy. CARDIOVASCULAR: Regular rate and rhythm without murmurs, gallops, or rubs. RESPIRATORY: Breath sounds equal bilaterally. No accessory muscle use. GASTROINTESTINAL: Abdomen soft, tender to palpation, nondistended. FLORENCE drain in place. NG tube in place. MUSCULOSKELETAL: No cyanosis, or edema. BACK: Nontender without obvious deformity. No CVA tenderness. Procedures Perforated duodenal ulcer repair A/P Problem List: (1) Perforated bowel ICD Code: K63.1 Status: Acute (2) History of ETOH abuse ICD Code: Z87.898 Status: Acute (3) Hyponatremia ICD Code: E87.1 Status: Acute (4) Polycythemia ICD Code: D75.1 Status: Acute (5) Lactic acidosis ICD Code: E87.2 Status: Acute (6) Sigmoid diverticulosis ICD Code: K57.30 Status: Chronic (7) Acute kidney injury ICD Code: N17.9 Status: Acute (8) Elevated AST (SGOT) ICD Code: R74.0 Status: Acute (9) Ascites ICD Code: R18.8 Status: Acute (10) History of hepatitis ICD Code: Z86.19 Status: Acute (11) Current tobacco use ICD Code: Z72.0 Status: Acute (12) Septic shock ICD Code: A41.9 Status: Acute (13) Chronic, continuous use of opioids ICD Code: F11.90 Status: Acute Assessment and Plan Mr. Sierra is a 61 year old male with a history of alcoholism, diverticulitis, GERD, IVDU who presented to the ED on 06/22/2017 with severe abdominal pain. He reported vomiting with small amount of blood. CT abdomen/pelvis showed free intraperitoneal air with moderate to severe ascites as well as a 7.9 cm loculated abscess in the mesentery or lesser sac. Perforated bowel was suspected. Patient underwent emergent surgical intervention by Dr. Martinez Rubin on 06/22/2017 and subsequently managed in the ICU. Patient's care was transferred to the hospitalist service on 06/24/2017. - Perforated duodenal ulcer - Pneumoperitoneum - Gastroesophageal reflux disease - Loculated intra-abdominal abscess - s/p Ex lap, repair of perforated duodenal ulcer. - Continue Levaquin 750mg IV Qday, Flagyl 500mg IV Q8hrs. 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 - Lactic acid 5.9 --> 1.3. - Protonix 40mg IV Q12hrs. - Surgery closely following. Surgery started clear liquid diet today. - Consult dietitian, add ensure to meals. - Acute kidney injury - Hyponatremia - resolved. - Hypokalemia - K+ 3.4 today. - Hypocalcemia - Improved. Creatinine 1.70 --> 0.61 - Na improved from 130 --> 141. - IV Calcium Chloride, replace potassium orally. - Alcohol abuse - IV Drug abuse - Patient has been counselled. - Deconditioning - Will request daily PT Problem Qualifiers (1) Ascites: Qualified Code: R18.8 - Other ascites Boo Navarrete MD Jun 27, 2017 11:51
[2017-06-27] MEDS ORDERED: CALCIUM CHLORIDE INJ 1 GM in SODIUM CHLORIDE 0.9% INJ 100 ML IV ONE (13:00)
[2017-06-27] MEDS ORDERED: POTASSIUM CHLORIDE 10 MEQ CONTROLLED RELEASE TAB PO ONE (13:00)
[2017-06-28] MEDS: LEVOFLOXACIN 750 MG PREMIX INJ 150 ML IV SCH (02:16)
[2017-06-28 04:00] VITALS: BP 144/85; PULSE 95; RESP 19; TEMP 97.4; O2SAT 98
[2017-06-28] MEDS: CHLORHEXIDINE GLUCONATE 2 % 1 PACK (2 CLOTHS) TOP SCH (04:00)
[2017-06-28] MEDS: INSULIN NovoLIN REGULAR SUPPLEMENTAL SCALE SQ SCH ×7 (04:00→23:54)
[2017-06-28] MEDS: HYDROmorphone HCL PCA 6 MG/30 ML IV SCH (04:05)
[2017-06-28] MEDS: HEPARIN SODIUM - SQ 10,000 UNITS/ML VIAL SQ SCH ×2 (04:07→18:22)
[2017-06-28] MEDS: metroNIDAZOLE 500 MG INJ 100 ML IV SCH ×2 (04:10→13:23)
[2017-06-28 05:38] LABS: HEMATOCRIT 41.4 % (39.0-51.0); MEAN CELL VOLUME 88.6 FL (80.0-100.0); MEAN CORPUSCULAR HEMOGLOBIN 30.6 PG (27.0-34.0); MEAN CORPUSCULAR HGB CONC 34.5 % (32.0-36.0); PLATELET COUNT 166 TH/MM3 (150-450); RED BLOOD COUNT 4.67 MIL/MM3 (4.50-5.90); RED CELL DISTRIBUTION WIDTH 14.5 % (11.6-17.2); REVIEW FLAG FINAL; WHITE BLOOD COUNT 12.8 TH/MM3 (4.0-11.0)
[2017-06-28] MEDS: PCA - TOTAL MG DILAUDID DELIVERED PER SHIFT OTHER SCH (06:00)
[2017-06-28 06:25] LABS: BICARBONATE 30.4 MEQ/L (21.0-32.0); MAGNESIUM 1.7 MG/DL (1.5-2.5); POTASSIUM 3.4 MEQ/L (3.5-5.1)
[2017-06-28 08:00] VITALS: BP 119/84; PULSE 75; RESP 16; TEMP 98.2; O2SAT 94
[2017-06-28] MEDS: PANTOPRAZOLE SODIUM 40 MG VIAL IV SCH (08:07)
[2017-06-28 12:00] VITALS: BP 124/71; PULSE 81; RESP 18; TEMP 98.6; O2SAT 95
--- NOTE | 2017-06-28 13:36 | HHI.PR ---
Subjective Remarks denies nausea or vomiting tolerated liquid diet states had abdominal pain - requesting increase in dose of oral medications Objective Vitals Vital Signs Date Time Temp Pulse Resp B/P Pulse Ox O2 Delivery O2 Flow Rate FiO2 06/28/17 11:03 15 06/28/17 06:00 6 06/28/17 04:05 18 06/28/17 04:00 97.4 95 19 144/85 98 06/27/17 23:59 99.6 106 19 103/64 96 06/27/17 22:18 18 06/27/17 22:00 18 06/27/17 20:00 95 06/27/17 20:00 99.0 76 20 144/86 95 06/27/17 16:20 14 06/27/17 16:00 98.3 92 20 114/78 96 06/27/17 14:00 14 I/O 06/27/17 06/27/17 06/27/17 06/28/17 06/28/17 06/28/17 07:00 15:00 23:00 07:00 15:00 23:00 Intake Total 1043 ml 600 ml 240 ml 662 ml Output Total 360 ml 840 ml 500 ml Balance 683 ml -240 ml 240 ml 162 ml Intake Oral 600 ml 240 ml 240 ml IV Total 1043 ml 422 ml Output Urine Total 250 ml 750 ml 300 ml Drainage Total 110 ml 90 ml 200 ml # Voids 1 # Bowel Movements 1 1 1 Result Diagram: 06/28/1740906/28/17409 Objective Remarks GENERAL: AOX3, NAD SKIN: Warm and dry. HEAD: Normocephalic. EYES: No scleral icterus. No injection or drainage. NECK: Supple, trachea midline. No JVD or lymphadenopathy. CARDIOVASCULAR: Regular rate and rhythm without murmurs, gallops, or rubs. RESPIRATORY: Breath sounds equal bilaterally. No accessory muscle use. GASTROINTESTINAL: Abdomen soft, tender to palpation, nondistended. FLORENCE drain in place - fluid cloudy MUSCULOSKELETAL: No cyanosis, (+) 2 pitting edema in lower extremities. BACK: Nontender without obvious deformity. No CVA tenderness. Procedures Perforated duodenal ulcer repair Urinary Catheter: No A/P Problem List: (1) Perforated bowel ICD Code: K63.1 Status: Acute (2) History of ETOH abuse ICD Code: Z87.898 Status: Chronic (3) Hyponatremia ICD Code: E87.1 Status: Resolved (4) Polycythemia ICD Code: D75.1 Status: Resolved (5) Lactic acidosis ICD Code: E87.2 Status: Resolved (6) Sigmoid diverticulosis ICD Code: K57.30 Status: Chronic (7) Acute kidney injury ICD Code: N17.9 Status: Resolved (8) Elevated AST (SGOT) ICD Code: R74.0 Status: Acute (9) Ascites ICD Code: R18.8 Status: Resolved (10) History of hepatitis ICD Code: Z86.19 Status: Chronic (11) Current tobacco use ICD Code: Z72.0 Status: Chronic (12) Septic shock ICD Code: A41.9 Status: Resolved (13) Chronic, continuous use of opioids ICD Code: F11.90 Status: Chronic (14) Duodenal ulcer with perforation ICD Code: K26.5 Status: Acute (15) Leukocytosis ICD Code: D72.829 Status: Acute (16) Edema of both legs ICD Code: R60.0 Status: Acute Assessment and Plan Mr. Sierra is a 61 year old male with a history of alcoholism, diverticulitis, GERD, IVDU who presented to the ED on 06/22/2017 with severe abdominal pain. He reported vomiting with small amount of blood. CT abdomen/pelvis showed free intraperitoneal air with moderate to severe ascites as well as a 7.9 cm loculated abscess in the mesentery or lesser sac. Perforated bowel was suspected. Patient underwent emergent surgical intervention by Dr. Martinez Rubin on 06/22/2017 and subsequently managed in the ICU. Patient's care was transferred to the hospitalist service on 06/24/2017. - Perforated duodenal ulcer - Pneumoperitoneum - Gastroesophageal reflux disease - Loculated intra-abdominal abscess - s/p Ex lap, repair of perforated duodenal ulcer. - Continue Levaquin 750mg IV Qday, Flagyl 500mg IV Q8hrs. 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 - Lactic acid 5.9 --> 1.3. - Protonix 40mg IV Q12hrs. - 06/[address] Rubin. Will DC ESCALATOR INSTALLER pump and keep on oral medications. Diet advanced to regular. - Acute kidney injury - Hyponatremia - resolved after IVF administration - 06/28 Hypokalemia - K+ 3.4 today - replace orally and continue to monitor BMP. - Hypocalcemia - resolved. - 06/28 Hypophosphatemia - Due to poor oral intake. Will replace orally. Continue to monitor. - Alcohol abuse - IV Drug abuse - Patient has been counselled. - Deconditioning - Will request daily PT - 06/28 BL lower extremity edema : will start on lasix orally and Check venous doppler BL to r/o DVT. - 06/28 Leukocytosis: No fevers. Patient looks non toxic. Will check urinalysis. Monitor CBC w diff. Discharge Planning Dc pending GS clearance and safe discharge plan as patient seems to have no utilities at the moment. CM to assist with safe discharge plans. Possible DC in 2 to 3 days. Problem Qualifiers (1) Ascites: Qualified Code: R18.8 - Other ascites Boo Navarrete MD Jun 28, 2017 13:36
[2017-06-28] MEDS ORDERED: POTASSIUM CHLORIDE 10 MEQ CONTROLLED RELEASE TAB PO ONE (13:45)
[2017-06-28] MEDS ORDERED: POTASSIUM PHOSPHATE/SODIUM PHOSPHATE 250 MG TAB PO ONE (13:45)
--- NOTE | 2017-06-28 14:02 | HHI.PR ---
Subjective Subjective Notes Stable. + flatus and small bm. Cristino diet. Objective Vitals/I&O Vital Signs Date Time Temp Pulse Resp B/P Pulse Ox O2 Delivery O2 Flow Rate FiO2 06/28/17 11:03 15 06/28/17 04:00 97.4 95 144/85 98 06/27/17 10:30 Room Air 06/26/17 08:26 21 06/25/17 15:26 1.00 Labs Laboratory Tests Test 06/28/17 04:10 White Blood Count 12.8 Red Blood Count 4.67 Hemoglobin 14.3 Hematocrit 41.4 Mean Corpuscular Volume 88.6 Mean Corpuscular Hemoglobin 30.6 Mean Corpuscular Hemoglobin 34.5 Concent Red Cell Distribution Width 14.5 Platelet Count 166 Mean Platelet Volume 9.1 Sodium Level 135 Potassium Level 3.4 Chloride Level 97 Carbon Dioxide Level 30.4 Anion Gap 8 Blood Urea Nitrogen 13 Creatinine 0.61 Estimat Glomerular Filtration 135 Rate Random Glucose 82 Calcium Level 8.0 Phosphorus Level 1.9 Magnesium Level 1.7 Radiology Last Impressions Chest X-Ray 06/22/17 1851 Signed Impressions: Service Date/Time: Thursday, June 22, 2017 18:53 - CONCLUSION: No acute disease. Corby Herrera MD Abdomen/Pelvis CT 06/22/17 0000 Signed Impressions: Service Date/Time: Thursday, June 22, 2017 20:15 - CONCLUSION: 1. Free intraperitoneal air with moderate to severe ascites. 7.9 cm loculated abscess in the mesentery or lesser sac. Probable portal venous gas. Findings suspicious for perforated bowel. No definite obstruction. 2. Hiatal hernia with fluid in distal esophagus. Lung bases clear. Corby Herrera MD Narrative Exam NAD nonlabored breathing Abd: inc with min erythema and edema inferiorly- removed two tal, no purulent fluid present, lorena cloudy output, mod distention A/P Assessment and Plan 61 yo M POD 6 s/p ex lap, repair perf duodenal ulcer. Stable post op. 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 Oxycodone. Lev/flagyl. BID protonix. Change all to PO. Juancho Rubin MD Jun 28, 2017 14:02
[2017-06-28] MEDS: THIAMINE INJ 100 MG in SODIUM CHLORIDE 0.9% INJ 100 ML IV SCH (14:48)
[2017-06-28] MEDS: FUROSEMIDE 40 MG TAB PO SCH (14:50)
[2017-06-28 16:00] VITALS: BP 99/59; PULSE 93; RESP 18; TEMP 98.7; O2SAT 96
[2017-06-28 20:00] VITALS: BP 117/60; PULSE 72; RESP 20; TEMP 99.3; O2SAT 95
--- NOTE | 2017-06-28 20:12 | RADRPT ---
EXAM DATE/TIME: 06/28/2017 19:25 [facility] COMPARISON: No previous studies available for comparison. INDICATIONS : Bilateral leg edema. MEDICAL HISTORY : Gastroesophageal reflux disease. Asthma. Nausea. Vomiting. Heartburn Anxiety. Alcohol use. A. Hepatitis A. SURGICAL HISTORY : Fusion to C3-C4. ENCOUNTER: Initial ACUITY: 1 day PAIN SCORE: 1/10 LOCATION: Bilateral legs. TECHNIQUE: Venous ultrasound of the left and right leg was performed from the inguinal ligament to the proximal calf. Real-time, color Doppler and spectral tracing, compression and augmentation techniques were us ed. FINDINGS: RIGHT LEG: There is normal compressibility of the deep venous system from the inguinal region to the proximal ca lf. No echogenic clot is seen in the lumen of the common femoral, femoral, popliteal, and posterior tibial veins. There is a normal response of the venous system to proximal and distal augmentation an d respiration. LEFT LEG: There is normal compressibility of the deep venous system from the inguinal region to the proximal ca lf. No echogenic clot is seen in the lumen of the common femoral, femoral, popliteal, and posterior tibial veins. There is a normal response of the venous system to proximal and distal augmentation an d respiration. CONCLUSION: No evidence of lower extremity DVT on the right or left. Brad Jung MD on June 28, 2017 at 20:06 Board Certified Radiologist. This report was verified electronically.
[2017-06-28 20:18] VITALS: PULSE 87
[2017-06-28] MEDS: metroNIDAZOLE 500 MG TAB PO SCH (20:38)
[2017-06-28] MEDS: PANTOPRAZOLE SOD 40 MG DELAYED RELEASE TAB PO SCH (20:38)
[2017-06-28] MEDS: SODIUM CHLORIDE 0.9% FLUSH 10 ML FLUSH IV FLUSH SCH (20:39)
[2017-06-29] VITALS (7 sets, daily range): BP systolic 120–134; BP diastolic 67–91; PULSE 74–99; RESP 16–20; TEMP 97.7–99.7; O2SAT 93–95
[2017-06-29] MEDS: CHLORHEXIDINE GLUCONATE 2 % 1 PACK (2 CLOTHS) TOP SCH (04:00)
[2017-06-29] MEDS: INSULIN NovoLIN REGULAR SUPPLEMENTAL SCALE SQ SCH ×4 (04:00→20:00)
[2017-06-29] MEDS: HEPARIN SODIUM - SQ 10,000 UNITS/ML VIAL SQ SCH (06:47)
[2017-06-29] MEDS: metroNIDAZOLE 500 MG TAB PO SCH ×3 (06:47→20:59)
[2017-06-29] MEDS: SODIUM CHLORIDE 0.9% FLUSH 10 ML FLUSH IV FLUSH SCH ×2 (09:00→21:00)
[2017-06-29] MEDS: FUROSEMIDE 40 MG TAB PO SCH (09:32)
[2017-06-29] MEDS: PANTOPRAZOLE SOD 40 MG DELAYED RELEASE TAB PO SCH ×2 (09:32→20:59)
[2017-06-29] MEDS: LEVOFLOXACIN 750 MG TAB PO SCH (09:32)
[2017-06-29] MEDS: THIAMINE INJ 100 MG in SODIUM CHLORIDE 0.9% INJ 100 ML IV SCH (09:37)
[2017-06-29] MEDS ORDERED: POTASSIUM CHLORIDE 10 MEQ CONTROLLED RELEASE TAB PO ONE (10:45)
[2017-06-29] MEDS ORDERED: OXYC-395 PO (10:51)
--- NOTE | 2017-06-29 10:52 | HHI.PR ---
Subjective Remarks Follow for perforated bowel status post ostomy Patient complaining of pain with cough at the wound site. Denies any nausea or vomiting. Positive output from the ostomy site. FLOR[place] drain in place. Tolerating oral intake. He remains afebrile. He has no other complaints. Still with patient's nurse. Objective Vitals Vital Signs Date Time Temp Pulse Resp B/P Pulse Ox O2 Delivery O2 Flow Rate FiO2 06/29/17 08:00 97.7 74 19 125/91 93 06/29/17 04:00 98.2 82 19 126/73 95 06/29/17 00:14 99.1 99 20 132/68 93 06/28/17 20:18 87 06/28/17 20:00 95 Room Air 06/28/17 20:00 99.3 72 20 117/60 95 06/28/17 16:00 98.7 93 18 99/59 96 06/28/17 12:00 98.6 81 18 124/71 95 06/28/17 11:03 15 I/O 06/28/17 06/28/17 06/28/17 06/29/17 06/29/17 06/29/17 07:00 15:00 23:00 07:00 15:00 23:00 Intake Total 662 ml 1000 ml 571 ml 240 ml Output Total 500 ml 600 ml 650 ml 360 ml Balance 162 ml 400 ml -79 ml -120 ml Intake Oral 240 ml 1000 ml 240 ml 240 ml IV Total 422 ml 331 ml Output Urine Total 300 ml 600 ml 600 ml 350 ml Drainage Total 200 ml 50 ml 10 ml # Bowel Movements 1 0 0 0 Result Diagram: 06/28/1740906/28/17409 Objective Remarks GENERAL: Patient laying in bed very comfortably in no distress. CARDIOVASCULAR: Regular rate and rhythm without murmurs, gallops, or rubs. RESPIRATORY: Breath sounds equal bilaterally. No accessory muscle use. GASTROINTESTINAL: Abdomen soft, tender to palpation more at the wound site, nondistended. FLOR[place] drain in place - fluid cloudy MUSCULOSKELETAL: No cyanosis, (+) 2 pitting edema in lower extremities. BACK: Nontender without obvious deformity. No CVA tenderness. Procedures Perforated duodenal ulcer repair Medications and IVs Current Medications Sodium Chloride (NS 1000 ml Inj) 1,000 ml @ 2,000 mls/hr Q30M ONCE IV Last administered on 06/22/17 19:15; Start 06/22/17 at 19:00; Stop 06/22/17 at 19:29; Status DC Ondansetron HCl (Zofran Inj) 4 mg ONCE ONCE IV Last administered on 06/22/17 19:12; Start 06/22/17 at 19:00; Stop 06/22/17 at 19:01; Status DC Hydromorphone HCl 1 mg 1 mg ONCE ONCE IVS Last administered on 06/22/17 19:14 ; Start 06/22/17 at 19:15; Stop 06/22/17 at 19:16; Status DC Sodium Chloride 1,000 ml @ 2,000 mls/hr Q30M ONCE IV Last administered on 19:51; Start 06/22/17 at 19:15; Stop 06/22/17 at 19:44; Status DC Sodium Chloride 1,000 ml @ 2,000 mls/hr Q30M ONCE IV Last administered on 20:58; Start 06/22/17 at 20:30; Stop 06/22/17 at 20:59; Status DC Vancomycin HCl 1000 mg/Sodium Chloride 250 ml @ 250 mls/hr ONCE ONCE IV Last administered on 06/22/17 21:41; Start 06/22/17 at 20:30; Stop 06/22/17 at 21:29; Status DC Piperacillin Sod/ Tazobactam Sod (Zosyn 3.375 Gm Premix) 50 ml @ 100 mls/hr ONCE ONCE IV Last administered on 06/22/17 20:58; Start 06/22/17 at 20:30; Stop 06/22/17 at 20:59; Status DC Iodixanol (VISIPAQUE 320 INJ (Rad CT)) 50 ml STK-MED ONCE IV Last administered on 06/22/17 20:25; Start 06/22/17 at 20:25; Stop 06/22/17 at 20:26; Status DC Hydromorphone HCl (Dilaudid Pf Inj) 1 mg ONCE ONCE IV PUSH Last administered on 06/22/17 20:58; Start 06/22/17 at 20:45; Stop 06/22/17 at 20:46; Status DC Midazolam HCl 2 mg 2 mg ONCE ONCE IV PUSH Last administered on 06/22/17 20:59 ; Start 06/22/17 at 20:45; Stop 06/22/17 at 20:46; Status DC Metronidazole (Flagyl 500 Mg Inj) 100 ml @ As Directed STK-MED ONCE IV ; Start 06/22/17 at 22:23; Stop 06/22/17 at 22:24; Status DC Sugammadex Sodium 200 mg 200 mg STK-MED ONCE IV PUSH ; Start 06/22/17 at 22:40; Stop 06/22/17 at 22:41; Status DC Sodium Chloride (NS 1000 ml Inj) 1,000 ml @ 125 mls/hr Q8H IV Last administered on 06/24/17 00:00; Start 06/23/17 at 00:00; Stop 06/24/17 at 05:59; Status DC Sodium Chloride (NS Flush) 2 ml UNSCH PRN IV FLUSH FLUSH AFTER USING IV ACCESS ; Start 06/23/17 at 00:00 Sodium Chloride (NS Flush) 2 ml BID IV FLUSH Last administered on 06/28/17 20: 39; Start 06/23/17 at 09:00 Ondansetron HCl (Zofran Inj) 4 mg Q6H PRN IV NAUSEA OR VOMITING; Start 06/23/17 at 00:00 Pantoprazole Sodium (Protonix Inj) 40 mg BID IV Last administered on 06/28/17 08:07; Start 06/23/17 at 09:00; Stop 06/28/17 at 14:01; Status DC Diphenhydramine HCl (Benadryl Inj) 25 mg Q6H PRN IV ITCHING; Start 06/23/17 at 00:00 Miscellaneous Information (Post-op Orders (for Pharmacy)) STAT ONCE XX ; Start 06/23/17 at 00:00; Stop 06/23/17 at 00:16; Status DC Naloxone HCl (Narcan Inj) 0.4 mg UNSCH PRN IV SEE LABEL COMMENTS; Start at 00:00 Naloxone HCl (Narcan Inj) 0.4 mg UNSCH PRN IV RESPIRATORY RATE LESS THAN 10; Start 06/23/17 at 00:00; Stop 06/28/17 at 14:01; Status DC Hydromorphone HCl (Dilaudid UTILITY SYSTEM REPAIRER Inj) 6 mg UNSCH IV Last administered on 12:30; Start 06/23/17 at 00:00; Stop 06/23/17 at 15:43; Status DC UTILITY SYSTEM REPAIRER Dosage Infused (Pha) 1 1 Q8HR OTHER Last administered on 06/23/17 16:00; Start 06/23/17 at 00:00; Stop 06/28/17 at 14:01; Status DC Levofloxacin/ Dextrose 150 ml @ 100 mls/hr Q24H IV Last administered on 02:16; Start 06/23/17 at 01:00; Stop 06/28/17 at 14:01; Status DC Metronidazole 100 ml @ 100 mls/hr Q8H IV Last administered on 06/28/17 13:23 ; Start 06/23/17 at 06:00; Stop 06/28/17 at 14:01; Status DC Levofloxacin/ Dextrose 50 ml @ As Directed STK-MED ONCE IV Last administered on 06/23/17 00:25; Start 06/23/17 at 00:25; Stop 06/23/17 at 00:26; Status DC Levofloxacin/ Dextrose (Levaquin 500 Mg Premix Inj) 100 ml @ As Directed STK- MED ONCE IV Last administered on 06/23/17 00:25; Start 06/23/17 at 00:25; Stop 06/23/17 at 00:26; Status DC Fentanyl Citrate (fentaNYL INJ) 250 mcg STK-MED ONCE .ROUTE ; Start 06/23/17 at 00:27; Stop 06/23/17 at 00:28; Status DC Fentanyl Citrate (fentaNYL INJ) 250 mcg STK-MED ONCE .ROUTE ; Start 06/23/17 at 00:27; Stop 06/23/17 at 00:28; Status DC Miscellaneous Information ALL NURSING DEPARTME... UNSCH PRN .XX SEE LABEL COMMENTS; Start 06/23/17 at 00:00; Stop 06/24/17 at 00:00; Status DC Sodium Chloride (NS Flush) 2 ml UNSCH PRN IV FLUSH FLUSH AFTER USING IV ACCESS ; Start 06/23/17 at 00:45; Status Cancel Sodium Chloride (NS Flush) 2 ml BID IV FLUSH Last administered on 06/23/17 09: 00; Start 06/23/17 at 09:00; Stop 06/23/17 at 17:02; Status DC Acetaminophen (Tylenol) 650 mg Q6H PRN PO PAIN 1-10 AND/OR FEVER >101F; Start 06/23/17 at 00:45; Stop 06/27/17 at 09:01; Status DC Ondansetron HCl (Zofran Inj) 4 mg Q6H PRN IV NAUSEA OR VOMITING; Start 06/23/17 at 00:45; Status Cancel Albuterol Sulfate (Albuterol Neb) 2.5 mg Q2HR NEB PRN INH SOB/WHEEZING; Start 06/23/17 at 00:45; Stop 06/24/17 at 21:33; Status DC Heparin Sodium (Porcine) (Heparin Inj) 5,000 units Q12H SQ Last administered on 06/29/17 06:47; Start 06/24/17 at 06:00 Miscellaneous Information 1 Q361D XX Last administered on 06/23/17 06:23; Start 06/23/17 at 00:45 Chlorhexidine Gluconate (Chlorhexidine 2% Cloth) Taper DAILY@04 TOP Last administered on 06/23/17 06:23; Start 06/23/17 at 04:00; Stop 06/19/18 at 03:59 Chlorhexidine Gluconate (Chlorhexidine 2% Cloth) 3 pack UNSCH PRN TOP HYGIENIC CARE; Start 06/23/17 at 00:45 Dextrose (D50w (Vial) Inj) 50 ml UNSCH PRN IV HYPOGLYCEMIA-SEE COMMENTS Last administered on 06/23/17 23:27; Start 06/23/17 at 00:45; Stop 06/28/17 at 13:39; Status DC Glucagon (Glucagon Inj) 1 mg UNSCH PRN OTHER HYPOGLYCEMIA-SEE COMMENTS; Start 06/23/17 at 00:45; Stop 06/28/17 at 13:39; Status DC Insulin Human Regular 1 1 Q4HR SQ Last administered on 06/28/17 20:00; Start 06/23/17 at 04:00 Thiamine HCl/ Sodium Chloride (Thiamine Inj/NS Inj) 101 ml @ 101 mls/hr DAILY IV Last administered on 06/29/17 09:37; Start 06/23/17 at 09:00 Hydromorphone HCl 6 mg 6 mg UNSCH IV Last administered on 06/27/17 05:15; Start 06/23/17 at 17:00; Stop 06/27/17 at 08:31; Status DC Lactated Ringer's (Lr 1000 ml Inj) 1,000 ml @ 999 mls/hr BOLUS ONCE IV Last administered on 06/23/17 16:00; Start 06/23/17 at 16:00; Stop 06/23/17 at 17:01; Status DC Dextrose 50 ml 50 ml STK-MED ONCE .ROUTE Last administered on 06/23/17 23:25; Start 06/23/17 at 23:25; Stop 06/23/17 at 23:26; Status DC Dextrose/Sodium Chloride (D5W-NS 1000 ml Inj) 1,000 ml @ 50 mls/hr Q20H IV Last administered on 06/27/17 20:50; Start 06/24/17 at 06:00; Stop 06/28/17 at 14:01; Status DC Dextrose (D50w (Syr) Inj) 50 ml STK-MED ONCE .ROUTE Last administered on 06:05; Start 06/24/17 at 06:09; Stop 06/24/17 at 06:10; Status DC Phenol 2 spray 2 spray Q2H PRN OROPHARYNG SORE THROAT; Start 06/24/17 at 12:00 Lactated Ringer's (Lr 1000 ml Inj) 1,000 ml @ 999 mls/hr BOLUS ONCE IV Last administered on 06/24/17 12:40; Start 06/24/17 at 12:00; Stop 06/24/17 at 13:00; Status DC Albuterol/ Ipratropium (Duoneb Neb) 1 ampule Q4HR NEB PRN NEB Dyspnea Last administered on 06/27/17 20:39; Start 06/24/17 at 21:30 Acetylcysteine (Mucomyst 10% Neb) 2 ml Q4HR NEB NEB Last administered on 15:37; Start 06/25/17 at 00:00; Stop 06/27/17 at 23:59; Status DC Diatrizoate Meglum/ Diatrizoate Sod ( Gastroview Liq) 360 ml STK-MED ONCE NG Last administered on 06/25/17 10:00; Start 06/25/17 at 10:00; Stop 06/25/17 at 10:10; Status DC Magnesium Hydroxide (Milk Of Magnanthony Liq) 30 ml ONCE ONCE PO Last administered on 06/26/17 14:16; Start 06/26/17 at 13:30; Stop 06/26/17 at 13:31 ; Status DC Hydromorphone HCl (Dilaudid UTILITY SYSTEM REPAIRER Inj) 6 mg UNSCH IV Last administered on 04:05; Start 06/27/17 at 08:30; Stop 06/28/17 at 14:02; Status DC Oxycodone HCl 10 mg 10 mg Q6H PRN PO PAIN SCALE 4 TO 10 Last administered on 08:43; Start 06/27/17 at 09:00; Stop 06/28/17 at 14:02; Status DC Calcium Chloride/ Sodium Chloride (Calcium Chloride Inj/NS Inj) 110 ml @ 110 mls/hr ONCE ONCE IV Last administered on 06/27/17 14:14; Start 06/27/17 at 13 :00; Stop 06/27/17 at 13:59; Status DC Potassium Chloride (KCl) 30 meq ONCE ONCE PO Last administered on 06/27/17 14 :12; Start 06/27/17 at 13:00; Stop 06/27/17 at 13:01; Status DC Potassium Phos/ Sodium Phos (K-Phos Neutral) 250 mg ONCE ONCE PO Last administered on 06/28/17 14:48; Start 06/28/17 at 13:45; Stop 06/28/17 at 13:46 ; Status DC Potassium Chloride (KCl) 30 meq ONCE ONCE PO Last administered on 06/28/17 13 :58; Start 06/28/17 at 13:45; Stop 06/28/17 at 13:46; Status DC Oxycodone HCl (Roxicodone) 15 mg Q6H PRN PO PAIN SCALE 4 TO 10 Last administered on 06/29/17 09:33; Start 06/28/17 at 15:00 Pantoprazole Sodium (Protonix) 40 mg Q12HR PO Last administered on 06/29/17 09 :32; Start 06/28/17 at 21:00 Levofloxacin (Levaquin) 750 mg DAILY PO Last administered on 8/14/17at 09:32; Start 06/29/17 at 09:00 Metronidazole (Flagyl) 500 mg Q8HR PO Last administered on 06/29/17 06:47; Start 06/28/17 at 22:00 Furosemide (Lasix) 40 mg DAILY PO Last administered on 06/29/17 09:32; Start 06/28/17 at 15:00 Potassium Chloride (KCl) 30 meq ONCE ONCE PO ; Start 06/29/17 at 10:45; Stop at 10:46; Status UNV A/P Problem List: (1) Perforated bowel ICD Code: K63.1 Status: Acute (2) History of ETOH abuse ICD Code: Z87.898 Status: Chronic (3) Hyponatremia ICD Code: E87.1 Status: Resolved (4) Polycythemia ICD Code: D75.1 Status: Resolved (5) Lactic acidosis ICD Code: E87.2 Status: Resolved (6) Sigmoid diverticulosis ICD Code: K57.30 Status: Chronic (7) Acute kidney injury ICD Code: N17.9 Status: Resolved (8) Elevated AST (SGOT) ICD Code: R74.0 Status: Acute (9) Ascites ICD Code: R18.8 Status: Resolved (10) History of hepatitis ICD Code: Z86.19 Status: Chronic (11) Current tobacco use ICD Code: Z72.0 Status: Chronic (12) Septic shock ICD Code: A41.9 Status: Resolved (13) Chronic, continuous use of opioids ICD Code: F11.90 Status: Chronic (14) Duodenal ulcer with perforation ICD Code: K26.5 Status: Acute (15) Leukocytosis ICD Code: D72.829 Status: Acute (16) Edema of both legs ICD Code: R60.0 Status: Acute Assessment and Plan Mr. Sierra is a 61 year old male with a history of alcoholism, diverticulitis, GERD, IVDU who presented to the ED on 06/22/2017 with severe abdominal pain. He reported vomiting with small amount of blood. CT abdomen/pelvis showed free intraperitoneal air with moderate to severe ascites as well as a 7.9 cm loculated abscess in the mesentery or lesser sac. Perforated bowel was suspected. Patient underwent emergent surgical intervention by Dr. Martinez Rubin on 06/22/2017 and subsequently managed in the ICU. Patient's care was transferred to the hospitalist service on 06/24/2017. Perforated duodenal ulcer - CT scan showed free air in the intraperitoneal with 7.9 cm loculated abscess. -Status post Ex lap, repair of perforated duodenal ulcer. -on Continue Levaquin 750mg PO Qday, Flagyl 500mg PO Q8hrs. -On oxycodone. Pain only occurs with cough. We'll continue with current pain regimen. -Continue Protonix. Acute kidney injury -Resolved after getting IV fluids. Most likely prerenal. Hyponatremia - resolved after IVF administration Hypokalemia/hypophosphatemia -Replenish as needed. Alcohol abuse/IV Drug abuse - Patient has been counselled. Deconditioning -PT consulted. Lower extremity edema. -Lower extremity Doppler negative for any DVT. Patient's on Lasix. Improving. Discharge Planning Once cleared by general surgeon patient to be discharged to home with home health. Problem Qualifiers (1) Ascites: Qualified Code: R18.8 - Other ascites Tereza Bender MD Jun 29, 2017 10:52
--- NOTE | 2017-06-29 11:13 | HHI.PR ---
Subjective Subjective Notes C/o pain. He had a bowel movt. Objective Vitals/I&O Vital Signs Date Time Temp Pulse Resp B/P Pulse Ox O2 Delivery O2 Flow Rate FiO2 06/29/17 08:00 97.7 74 19 125/91 93 06/28/17 20:00 Room Air 06/26/17 08:26 21 06/25/17 15:26 1.00 Radiology Last Impressions Chest X-Ray 06/22/17 1851 Signed Impressions: Service Date/Time: Thursday, June 22, 2017 18:53 - CONCLUSION: No acute disease. Corby Herrera MD Abdomen/Pelvis CT 06/22/17 0000 Signed Impressions: Service Date/Time: Thursday, June 22, 2017 20:15 - CONCLUSION: 1. Free intraperitoneal air with moderate to severe ascites. 7.9 cm loculated abscess in the mesentery or lesser sac. Probable portal venous gas. Findings suspicious for perforated bowel. No definite obstruction. 2. Hiatal hernia with fluid in distal esophagus. Lung bases clear. Corby Herrera MD Narrative Exam NAD nonlabored breathing Abd: inc opened slightly inferiorly, no erythema or purulence, lorena cloudy output , mod distention A/P Assessment and Plan 61 yo M POD 7 s/p ex lap, repair perf duodenal ulcer. Stable post op. Reg diet Oxycodone. Lev/flagyl. BID protonix. Anticipate dc home tomorrow. Needs [facility] to be set up. Juancho Rubin MD Jun 29, 2017 11:13
--- NOTE | 2017-06-29 11:14 | HHI.FF ---
Face to Face Verification Diagnosis: (1) Duodenal ulcer with perforation Home Health Nursing Order: Medical education Signs/symptoms of disease process Wound care and dressing changes Nursing assessment with vital signs Instructions: Wound care [place] drain care I have seen patient Brad Sierra on 06/29/17. My clinical findings support the need for the requested home health care services because: Ltd mobility - disease progression Deconditioned w/ increased weakness Med compliance is questionable Limited ability to care for self I certify that my clinical findings support that this patient is homebound because: Post-op weakness Need for psychosocial assistance Juancho Rubin MD Jun 29, 2017 11:14
[2017-06-30] VITALS (7 sets, daily range): BP systolic 106–133; BP diastolic 67–81; PULSE 63–95; RESP 12–18; TEMP 95.9–99.5; O2SAT 94–98
[2017-06-30] MEDS: CHLORHEXIDINE GLUCONATE 2 % 1 PACK (2 CLOTHS) TOP SCH (04:00)
[2017-06-30] MEDS: INSULIN NovoLIN REGULAR SUPPLEMENTAL SCALE SQ SCH ×6 (04:00→20:00)
[2017-06-30 05:18] LABS: BASOPHIL # 0.1 TH/MM3 (0-0.2); BASOPHIL % 0.4 % (0.0-2.0); EOSINOPHIL # 0.2 TH/MM3 (0-0.4); EOSINOPHIL % 1.6 % (0.0-4.0); HEMATOCRIT 37.5 % (39.0-51.0); HEMO FLAGS DIFF FINAL; LYMPH % 16.6 % (9.0-44.0); LYMPHOCYTE # 2.4 TH/MM3 (1.0-4.8); MEAN CELL VOLUME 88.5 FL (80.0-100.0); MEAN CORPUSCULAR HEMOGLOBIN 30.6 PG (27.0-34.0); MEAN CORPUSCULAR HGB CONC 34.6 % (32.0-36.0); NEUT % 75.4 % (16.0-70.0); PLATELET COUNT 186 TH/MM3 (150-450); RED BLOOD COUNT 4.24 MIL/MM3 (4.50-5.90); RED CELL DISTRIBUTION WIDTH 14.8 % (11.6-17.2); WHITE BLOOD COUNT 14.6 TH/MM3 (4.0-11.0)
[2017-06-30] MEDS: HEPARIN SODIUM - SQ 10,000 UNITS/ML VIAL SQ SCH ×2 (05:45→16:43)
[2017-06-30] MEDS: metroNIDAZOLE 500 MG TAB PO SCH ×3 (05:45→20:24)
[2017-06-30] MEDS: LEVOFLOXACIN 750 MG TAB PO SCH (09:37)
[2017-06-30] MEDS: PANTOPRAZOLE SOD 40 MG DELAYED RELEASE TAB PO SCH ×2 (09:38→20:24)
[2017-06-30] MEDS: FUROSEMIDE 40 MG TAB PO SCH (09:38)
[2017-06-30] MEDS: SODIUM CHLORIDE 0.9% FLUSH 10 ML FLUSH IV FLUSH SCH ×2 (09:40→20:24)
[2017-06-30] MEDS: THIAMINE INJ 100 MG in SODIUM CHLORIDE 0.9% INJ 100 ML IV SCH (09:40)
--- NOTE | 2017-06-30 11:15 | HHI.PR ---
Subjective Remarks Follow-up for repair of duodenal ulcer Patient's was found sleeping in bed and awaken by me. He said he is doing better but feels fatigue and wants to stay in the hospital so that he can rest. Otherwise had no complaints. Denies any nausea or vomiting. Tolerating oral intake. Objective Vitals Vital Signs Date Time Temp Pulse Resp B/P Pulse Ox O2 Delivery O2 Flow Rate FiO2 06/30/17 08:00 95.9 63 12 133/81 94 06/30/17 00:00 98.9 93 18 127/81 94 06/29/17 22:00 Room Air 06/29/17 21:00 78 06/29/17 20:00 98.8 79 18 134/69 94 06/29/17 16:00 98.7 99 17 128/79 95 06/29/17 12:00 99.7 96 16 120/67 95 I/O 06/29/17 06/29/17 06/29/17 06/30/17 06/30/17 06/30/17 06:59 14:59 22:59 06:59 14:59 22:59 Intake Total 240 ml 500 ml 600 ml Output Total 360 ml 700 ml 30 ml 850 ml Balance -120 ml -200 ml -30 ml -250 ml Intake Oral 240 ml 500 ml 600 ml IV Total 0 ml Output Urine Total 350 ml 700 ml 850 ml Drainage Total 10 ml 30 ml 0 ml # Bowel Movements 0 2 1 Result Diagram: 06/30/17 0351 06/28/17 0410 Objective Remarks GENERAL: Patient laying in bed very comfortably in no distress. CARDIOVASCULAR: Regular rate and rhythm without murmurs, gallops, or rubs. RESPIRATORY: Breath sounds equal bilaterally. No accessory muscle use. GASTROINTESTINAL: Abdomen soft, tender to palpation more at the wound site, nondistended. [place] drain in place serosanguineous fluid MUSCULOSKELETAL: No cyanosis. BACK: Nontender without obvious deformity. No CVA tenderness. Procedures Perforated duodenal ulcer repair Medications and IVs Current Medications Sodium Chloride (NS 1000 ml Inj) 1,000 ml @ 2,000 mls/hr Q30M ONCE IV Last administered on 06/22/17t 19:15; Start 06/22/17 at 19:00; Stop 06/22/17 at 19:29; Status DC Ondansetron HCl (Zofran Inj) 4 mg ONCE ONCE IV Last administered on 06/22/17 19:12; Start 06/22/17 at 19:00; Stop 06/22/17 at 19:01; Status DC Hydromorphone HCl 1 mg 1 mg ONCE ONCE IVS Last administered on 06/22/17 19:14 ; Start 06/22/17 at 19:15; Stop 06/22/17 at 19:16; Status DC Sodium Chloride 1,000 ml @ 2,000 mls/hr Q30M ONCE IV Last administered on 19:51; Start 06/22/17 at 19:15; Stop 06/22/17 at 19:44; Status DC Sodium Chloride 1,000 ml @ 2,000 mls/hr Q30M ONCE IV Last administered on 20:58; Start 06/22/17 at 20:30; Stop 06/22/17 at 20:59; Status DC Vancomycin HCl 1000 mg/Sodium Chloride 250 ml @ 250 mls/hr ONCE ONCE IV Last administered on 06/22/17 21:41; Start 06/22/17 at 20:30; Stop 06/22/17 at 21:29; Status DC Piperacillin Sod/ Tazobactam Sod (Zosyn 3.375 Gm Premix) 50 ml @ 100 mls/hr ONCE ONCE IV Last administered on 06/22/17 20:58; Start 06/22/17 at 20:30; Stop 06/22/17 at 20:59; Status DC Iodixanol (VISIPAQUE 320 INJ (Rad CT)) 50 ml STK-MED ONCE IV Last administered on 06/22/17 20:25; Start 06/22/17 at 20:25; Stop 06/22/17 at 20:26; Status DC Hydromorphone HCl (Dilaudid Pf Inj) 1 mg ONCE ONCE IV PUSH Last administered on 06/22/17 20:58; Start 06/22/17 at 20:45; Stop 06/22/17 at 20:46; Status DC Midazolam HCl 2 mg 2 mg ONCE ONCE IV PUSH Last administered on 06/22/17 20:59 ; Start 06/22/17 at 20:45; Stop 06/22/17 at 20:46; Status DC Metronidazole (Flagyl 500 Mg Inj) 100 ml @ As Directed STK-MED ONCE IV ; Start 06/22/17 at 22:23; Stop 06/22/17 at 22:24; Status DC Sugammadex Sodium 200 mg 200 mg STK-MED ONCE IV PUSH ; Start 06/22/17 at 22:40; Stop 06/22/17 at 22:41; Status DC Sodium Chloride (NS 1000 ml Inj) 1,000 ml @ 125 mls/hr Q8H IV Last administered on 06/24/17 00:00; Start 06/23/17 at 00:00; Stop 06/24/17 at 05:59; Status DC Sodium Chloride (NS Flush) 2 ml UNSCH PRN IV FLUSH FLUSH AFTER USING IV ACCESS ; Start 06/23/17 at 00:00 Sodium Chloride (NS Flush) 2 ml BID IV FLUSH Last administered on 06/30/17 09: 40; Start 06/23/17 at 09:00 Ondansetron HCl (Zofran Inj) 4 mg Q6H PRN IV NAUSEA OR VOMITING; Start 06/23/17 at 00:00 Pantoprazole Sodium (Protonix Inj) 40 mg BID IV Last administered on 06/28/17 08:07; Start 06/23/17 at 09:00; Stop 06/28/17 at 14:01; Status DC Diphenhydramine HCl (Benadryl Inj) 25 mg Q6H PRN IV ITCHING; Start 06/23/17 at 00:00 Miscellaneous Information (Post-op Orders (for Pharmacy)) STAT ONCE XX ; Start 06/23/17 at 00:00; Stop 06/23/17 at 00:16; Status DC Naloxone HCl (Narcan Inj) 0.4 mg UNSCH PRN IV SEE LABEL COMMENTS; Start at 00:00 Naloxone HCl (Narcan Inj) 0.4 mg UNSCH PRN IV RESPIRATORY RATE LESS THAN 10; Start 06/23/17 at 00:00; Stop 06/28/17 at 14:01; Status DC Hydromorphone HCl (Dilaudid CAMELID FIBER SORTER Inj) 6 mg UNSCH IV Last administered on 12:30; Start 06/23/17 at 00:00; Stop 06/23/17 at 15:43; Status DC CAMELID FIBER SORTER Dosage Infused (Pha) 1 1 Q8HR OTHER Last administered on 06/23/17 16:00; Start 06/23/17 at 00:00; Stop 06/28/17 at 14:01; Status DC Levofloxacin/ Dextrose 150 ml @ 100 mls/hr Q24H IV Last administered on 02:16; Start 06/23/17 at 01:00; Stop 06/28/17 at 14:01; Status DC Metronidazole 100 ml @ 100 mls/hr Q8H IV Last administered on 06/28/17 13:23 ; Start 06/23/17 at 06:00; Stop 06/28/17 at 14:01; Status DC Levofloxacin/ Dextrose 50 ml @ As Directed STK-MED ONCE IV Last administered on 06/23/17 00:25; Start 06/23/17 at 00:25; Stop 06/23/17 at 00:26; Status DC Levofloxacin/ Dextrose (Levaquin 500 Mg Premix Inj) 100 ml @ As Directed STK- MED ONCE IV Last administered on 06/23/17 00:25; Start 06/23/17 at 00:25; Stop 06/23/17 at 00:26; Status DC Fentanyl Citrate (fentaNYL INJ) 250 mcg STK-MED ONCE .ROUTE ; Start 06/23/17 at 00:27; Stop 06/23/17 at 00:28; Status DC Fentanyl Citrate (fentaNYL INJ) 250 mcg STK-MED ONCE .ROUTE ; Start 06/23/17 at 00:27; Stop 06/23/17 at 00:28; Status DC Miscellaneous Information ALL NURSING DEPARTME... UNSCH PRN .XX SEE LABEL COMMENTS; Start 06/23/17 at 00:00; Stop 06/24/17 at 00:00; Status DC Sodium Chloride (NS Flush) 2 ml UNSCH PRN IV FLUSH FLUSH AFTER USING IV ACCESS ; Start 06/23/17 at 00:45; Status Cancel Sodium Chloride (NS Flush) 2 ml BID IV FLUSH Last administered on 06/23/17 09: 00; Start 06/23/17 at 09:00; Stop 06/23/17 at 17:02; Status DC Acetaminophen (Tylenol) 650 mg Q6H PRN PO PAIN 1-10 AND/OR FEVER >101F; Start 06/23/17 at 00:45; Stop 06/27/17 at 09:01; Status DC Ondansetron HCl (Zofran Inj) 4 mg Q6H PRN IV NAUSEA OR VOMITING; Start 06/23/17 at 00:45; Status Cancel Albuterol Sulfate (Albuterol Neb) 2.5 mg Q2HR NEB PRN INH SOB/WHEEZING; Start 06/23/17 at 00:45; Stop 06/24/17 at 21:33; Status DC Heparin Sodium (Porcine) (Heparin Inj) 5,000 units Q12H SQ Last administered on 06/30/17 05:45; Start 06/24/17 at 06:00 Miscellaneous Information 1 Q361D XX Last administered on 06/23/17 06:23; Start 06/23/17 at 00:45 Chlorhexidine Gluconate (Chlorhexidine 2% Cloth) Taper DAILY@04 TOP Last administered on 06/23/17 06:23; Start 06/23/17 at 04:00; Stop 06/19/18 at 03:59 Chlorhexidine Gluconate (Chlorhexidine 2% Cloth) 3 pack UNSCH PRN TOP HYGIENIC CARE; Start 06/23/17 at 00:45 Dextrose (D50w (Vial) Inj) 50 ml UNSCH PRN IV HYPOGLYCEMIA-SEE COMMENTS Last administered on 06/23/17 23:27; Start 06/23/17 at 00:45; Stop 06/28/17 at 13:39; Status DC Glucagon (Glucagon Inj) 1 mg UNSCH PRN OTHER HYPOGLYCEMIA-SEE COMMENTS; Start 06/23/17 at 00:45; Stop 06/28/17 at 13:39; Status DC Insulin Human Regular 1 1 Q4HR SQ Last administered on 06/28/17 20:00; Start 06/23/17 at 04:00 Thiamine HCl/ Sodium Chloride (Thiamine Inj/NS Inj) 101 ml @ 101 mls/hr DAILY IV Last administered on 06/30/17 09:40; Start 06/23/17 at 09:00 Hydromorphone HCl 6 mg 6 mg UNSCH IV Last administered on 06/27/17 05:15; Start 06/23/17 at 17:00; Stop 06/27/17 at 08:31; Status DC Lactated Ringer's (Lr 1000 ml Inj) 1,000 ml @ 999 mls/hr BOLUS ONCE IV Last administered on 06/23/17 16:00; Start 06/23/17 at 16:00; Stop 06/23/17 at 17:01; Status DC Dextrose 50 ml 50 ml STK-MED ONCE .ROUTE Last administered on 06/23/17 23:25; Start 06/23/17 at 23:25; Stop 06/23/17 at 23:26; Status DC Dextrose/Sodium Chloride (D5W-NS 1000 ml Inj) 1,000 ml @ 50 mls/hr Q20H IV Last administered on 06/27/17 20:50; Start 06/24/17 at 06:00; Stop 06/28/17 at 14:01; Status DC Dextrose (D50w (Syr) Inj) 50 ml STK-MED ONCE .ROUTE Last administered on 06:05; Start 06/24/17 at 06:09; Stop 06/24/17 at 06:10; Status DC Phenol 2 spray 2 spray Q2H PRN OROPHARYNG SORE THROAT; Start 06/24/17 at 12:00 Lactated Ringer's (Lr 1000 ml Inj) 1,000 ml @ 999 mls/hr BOLUS ONCE IV Last administered on 06/24/17 12:40; Start 06/24/17 at 12:00; Stop 06/24/17 at 13:00; Status DC Albuterol/ Ipratropium (Duoneb Neb) 1 ampule Q4HR NEB PRN NEB Dyspnea Last administered on 06/27/17 20:39; Start 06/24/17 at 21:30 Acetylcysteine (Mucomyst 10% Neb) 2 ml Q4HR NEB NEB Last administered on 15:37; Start 06/25/17 at 00:00; Stop 06/27/17 at 23:59; Status DC Diatrizoate Meglum/ Diatrizoate Sod ( Gastroview Liq) 360 ml STK-MED ONCE NG Last administered on 06/25/17 10:00; Start 06/25/17 at 10:00; Stop 06/25/17 at 10:10; Status DC Magnesium Hydroxide (Milk Of Magnesia Liq) 30 ml ONCE ONCE PO Last administered on 06/26/17 14:16; Start 06/26/17 at 13:30; Stop 06/26/17 at 13:31 ; Status DC Hydromorphone HCl (Dilaudid CAMELID FIBER SORTER Inj) 6 mg UNSCH IV Last administered on 04:05; Start 06/27/17 at 08:30; Stop 06/28/17 at 14:02; Status DC Oxycodone HCl 10 mg 10 mg Q6H PRN PO PAIN SCALE 4 TO 10 Last administered on 08:43; Start 06/27/17 at 09:00; Stop 06/28/17 at 14:02; Status DC Calcium Chloride/ Sodium Chloride (Calcium Chloride Inj/NS Inj) 110 ml @ 110 mls/hr ONCE ONCE IV Last administered on 06/27/17 14:14; Start 06/27/17 at 13 :00; Stop 06/27/17 at 13:59; Status DC Potassium Chloride (KCl) 30 meq ONCE ONCE PO Last administered on 06/27/17 14 :12; Start 06/27/17 at 13:00; Stop 06/27/17 at 13:01; Status DC Potassium Phos/ Sodium Phos (K-Phos Neutral) 250 mg ONCE ONCE PO Last administered on 06/28/17 14:48; Start 06/28/17 at 13:45; Stop 06/28/17 at 13:46 ; Status DC Potassium Chloride (KCl) 30 meq ONCE ONCE PO Last administered on 06/28/17 13 :58; Start 06/28/17 at 13:45; Stop 06/28/17 at 13:46; Status DC Oxycodone HCl (Roxicodone) 15 mg Q6H PRN PO PAIN SCALE 4 TO 10 Last administered on 06/30/17 09:37; Start 06/28/17 at 15:00 Pantoprazole Sodium (Protonix) 40 mg Q12HR PO Last administered on 06/30/17 09 :38; Start 06/28/17 at 21:00 Levofloxacin (Levaquin) 750 mg DAILY PO Last administered on 06/30/17 09:37; Start 06/29/17 at 09:00 Metronidazole (Flagyl) 500 mg Q8HR PO Last administered on 06/30/17 05:45; Start 06/28/17 at 22:00 Furosemide (Lasix) 40 mg DAILY PO Last administered on 06/30/17 09:38; Start 06/28/17 at 15:00 Potassium Chloride (KCl) 30 meq ONCE ONCE PO Last administered on 06/29/17 15 :35; Start 06/29/17 at 10:45; Stop 06/29/17 at 10:59; Status DC A/P Problem List: (1) Perforated bowel ICD Code: K63.1 Status: Acute (2) History of ETOH abuse ICD Code: Z87.898 Status: Chronic (3) Hyponatremia ICD Code: E87.1 Status: Resolved (4) Polycythemia ICD Code: D75.1 Status: Resolved (5) Lactic acidosis ICD Code: E87.2 Status: Resolved (6) Sigmoid diverticulosis ICD Code: K57.30 Status: Chronic (7) Acute kidney injury ICD Code: N17.9 Status: Resolved (8) Elevated AST (SGOT) ICD Code: R74.0 Status: Acute (9) Ascites ICD Code: R18.8 Status: Resolved (10) History of hepatitis ICD Code: Z86.19 Status: Chronic (11) Current tobacco use ICD Code: Z72.0 Status: Chronic (12) Septic shock ICD Code: A41.9 Status: Resolved (13) Chronic, continuous use of opioids ICD Code: F11.90 Status: Chronic (14) Duodenal ulcer with perforation ICD Code: K26.5 Status: Acute (15) Leukocytosis ICD Code: D72.829 Status: Acute (16) Edema of both legs ICD Code: R60.0 Status: Acute Assessment and Plan Mr. Sierra is a 61 year old male with a history of alcoholism, diverticulitis, GERD, IVDU who presented to the ED on 06/22/2017 with severe abdominal pain. He reported vomiting with small amount of blood. CT abdomen/pelvis showed free intraperitoneal air with moderate to severe ascites as well as a 7.9 cm loculated abscess in the mesentery or lesser sac. Perforated bowel was suspected. Patient underwent emergent surgical intervention by Dr. Martinez Rubin on 06/22/2017 and subsequently managed in the ICU. Patient's care was transferred to the hospitalist service on 06/24/2017. Perforated duodenal ulcer - CT scan showed free air in the intraperitoneal with 7.9 cm loculated abscess. -Status post Ex lap, repair of perforated duodenal ulcer. -on Continue Levaquin 750mg PO Qday, Flagyl 500mg PO Q8hrs. -On oxycodone. Pain only occurs with cough. continue with current pain regimen. -Continue Protonix. Acute kidney injury -Resolved after getting IV fluids. Most likely prerenal. Hyponatremia - resolved after IVF administration Hypokalemia/hypophosphatemia -Replenish as needed. Alcohol abuse/IV Drug abuse - Patient has been counselled. Deconditioning -PT consulted. Lower extremity edema. -Lower extremity Doppler negative for any DVT. Patient's on Lasix. Improving. Discharge Planning Possible discharge today pending recommendation from surgery. Problem Qualifiers (1) Ascites: Qualified Code: R18.8 - Other ascites Tereza Bender MD Jun 30, 2017 11:15
--- NOTE | 2017-06-30 17:32 | HHI.PR ---
Subjective Subjective Notes C/o pain. Tolerating diet. Objective Vitals/I&O Vital Signs Date Time Temp Pulse Resp B/P Pulse Ox O2 Delivery O2 Flow Rate FiO2 06/30/17 16:00 99.5 94 16 106/67 95 06/29/17 22:00 Room Air 06/26/17 08:26 21 Labs Laboratory Tests Test 06/30/17 03:51 White Blood Count 14.6 Red Blood Count 4.24 Hemoglobin 13.0 Hematocrit 37.5 Mean Corpuscular Volume 88.5 Mean Corpuscular Hemoglobin 30.6 Mean Corpuscular Hemoglobin 34.6 Concent Red Cell Distribution Width 14.8 Platelet Count 186 Mean Platelet Volume 9.2 Neutrophils (%) (Auto) 75.4 Lymphocytes (%) (Auto) 16.6 Monocytes (%) (Auto) 6.0 Eosinophils (%) (Auto) 1.6 Basophils (%) (Auto) 0.4 Neutrophils # (Auto) 11.0 Lymphocytes # (Auto) 2.4 Monocytes # (Auto) 0.9 Eosinophils # (Auto) 0.2 Basophils # (Auto) 0.1 CBC Comment DIFF FINAL Differential Comment Radiology Last Impressions Chest X-Ray 06/22/17 1851 Signed Impressions: Service Date/Time: Thursday, June 22, 2017 18:53 - CONCLUSION: No acute disease. Corby Herrera MD Abdomen/Pelvis CT 06/22/17 0000 Signed Impressions: Service Date/Time: Thursday, June 22, 2017 20:15 - CONCLUSION: 1. Free intraperitoneal air with moderate to severe ascites. 7.9 cm loculated abscess in the mesentery or lesser sac. Probable portal venous gas. Findings suspicious for perforated bowel. No definite obstruction. 2. Hiatal hernia with fluid in distal esophagus. Lung bases clear. Corby Herrera MD Narrative Exam NAD nonlabored breathing Abd: inc opened slightly inferiorly, no erythema or purulence, lorena cloudy output , mild distention A/P Assessment and Plan 61 yo M POD 8 s/p ex lap, repair perf duodenal ulcer. Stable post op but WBC continues to increase. Check CT a/p. If no abscess will be ok for dc tomorrow. Reg diet Oxycodone. Lev/flagyl. BID protonix. Juancho Rubin MD Jun 30, 2017 17:32
[2017-06-30] MEDS ORDERED: IOHEXOL 350 MG/ML 10 ML VIAL (for RAD DIAG) IV ONE (18:38)
--- NOTE | 2017-06-30 19:19 | RADRPT ---
EXAM DATE/TIME: 06/30/2017 18:20 [facility] COMPARISON: CT ABDOMEN & PELVIS W CONTRAST, June 22, 2017, 20:15. INDICATIONS : Post perforated doudenal ulcer repair. Evaluate for abscess. IV CONTRAST: 75 cc Omnipaque 350 (iohexol) IV ORAL CONTRAST: No oral contrast ingested. RADIATION DOSE: 9.06 CTDIvol (mGy) MEDICAL HISTORY : Diverticulitis. Hepatitis A. Hernia, hiatal. SURGICAL HISTORY : Fusion, cervical. ENCOUNTER: Initial ACUITY: 1 day PAIN SCALE: 6/10 LOCATION: abdomen TECHNIQUE: Volumetric scanning of the abdomen and pelvis was performed. Using automated exposure control and ad justment of the mA and/or kV according to patient size, radiation dose was kept as low as reasonably achievable to obtain optimal diagnostic quality images. DICOM format image data is available electro nically for review and comparison. FINDINGS: Interim midline laparotomy. Skin tal remain present. The abdominal wound appears within normal li mits. There is small, diffuse ascites. There are some fluid filled loops of nondistended small bowel includ ing the duodenum. There is a 19 x 30 x 29 mm fluid collection immediately anterior to the head of the pancreas, series 2 image 29.. A surgical drain is present and passes just beneath the fluid collecti on; the tip of the drain is just below the gallbladder A 14 x 30 x 34 mm fluid collection is seen med ial to the caudate lobe of the liver and causes mild mass effect on the right kianna of the diaphragm, series 2 image 16.. There is fluid in the pelvic cavity that appears mildly organized, measures 27 x 50 x 36 mm in size, series 2 image 68. I don't convincingly see an organized extraluminal collection otherwise. There is no bowel obstruction. No free air demonstrated. There is rather florid diverticulosis of the sigmoid colon but without evidence of diverticulitis. No acute abnormality seen of the solid organs. Small right and small to moderate left pleural effusions with dependent atelectasis seen of the visua lized lung bases. There is body wall edema. CONCLUSION: 1. Interim midline laparotomy and duodenal perforation repair. There is small, diffuse ascites and a focal fluid collection anterior to the pancreatic head and just above the drainage catheter. Mildly o rganized fluid is seen in the pelvic cavity. An additional small collection of fluid is seen medial t o the caudate lobe of the liver. Neither fluid collection contain air or appear significantly indurat ed to fully substantiate that these are abscesses 2. Anasarca/body wall edema. 3. No acute abnormality seen of the anterior abdominal wall. 4. Atelectasis and small right, small to moderate left pleural effusions of the visualized lung bases . Julio Yao MD on June 30, 2017 at 19:03 Board Certified Radiologist. This report was verified electronically.
[2017-07-01] MEDS: INSULIN NovoLIN REGULAR SUPPLEMENTAL SCALE SQ SCH ×5 (03:39→15:51)
[2017-07-01] MEDS: CHLORHEXIDINE GLUCONATE 2 % 1 PACK (2 CLOTHS) TOP SCH (03:43)
[2017-07-01 04:17] VITALS: BP 127/82; PULSE 80; RESP 17; TEMP 98.3; O2SAT 95
[2017-07-01] MEDS: HEPARIN SODIUM - SQ 10,000 UNITS/ML VIAL SQ SCH (04:57)
[2017-07-01] MEDS: metroNIDAZOLE 500 MG TAB PO SCH ×2 (04:57→12:09)
[2017-07-01 07:12] LABS: AUTOMATED NEUTROPHIL # 12.6 TH/MM3 (1.8-7.7); BASOPHIL # 0.1 TH/MM3 (0-0.2); BASOPHIL % 0.4 % (0.0-2.0); EOSINOPHIL # 0.3 TH/MM3 (0-0.4); EOSINOPHIL % 1.7 % (0.0-4.0); HEMATOCRIT 37.8 % (39.0-51.0); HEMO FLAGS DIFF FINAL; LYMPH % 12.8 % (9.0-44.0); MEAN CELL VOLUME 88.1 FL (80.0-100.0); MEAN CORPUSCULAR HEMOGLOBIN 30.5 PG (27.0-34.0); MEAN CORPUSCULAR HGB CONC 34.6 % (32.0-36.0); MONO % 5.8 % (0.0-8.0); NEUT % 79.3 % (16.0-70.0); PLATELET COUNT 230 TH/MM3 (150-450); RED BLOOD COUNT 4.29 MIL/MM3 (4.50-5.90); RED CELL DISTRIBUTION WIDTH 14.7 % (11.6-17.2); WHITE BLOOD COUNT 15.9 TH/MM3 (4.0-11.0)
[2017-07-01 08:00] VITALS: BP 115/69; PULSE 67; RESP 18; TEMP 98.7; O2SAT 100
[2017-07-01] MEDS: PANTOPRAZOLE SOD 40 MG DELAYED RELEASE TAB PO SCH (08:45)
[2017-07-01] MEDS: FUROSEMIDE 40 MG TAB PO SCH (08:45)
[2017-07-01] MEDS: LEVOFLOXACIN 750 MG TAB PO SCH (08:45)
[2017-07-01] MEDS: THIAMINE INJ 100 MG in SODIUM CHLORIDE 0.9% INJ 100 ML IV SCH (08:45)
[2017-07-01] MEDS: SODIUM CHLORIDE 0.9% FLUSH 10 ML FLUSH IV FLUSH SCH (08:46)
[2017-07-01] MEDS ORDERED: PANT40TA3 PO (11:56)
--- NOTE | 2017-07-01 11:59 | HHI.PR ---
Subjective Subjective Notes CT a/p yesterday ok. He is doing well and tolerating diet. Objective Vitals/I&O Vital Signs Date Time Temp Pulse Resp B/P Pulse Ox O2 Delivery O2 Flow Rate FiO2 07/01/17 08:00 98.7 67 18 115/69 100 06/30/17 20:30 Room Air Labs Laboratory Tests Test 07/01/17 06:04 White Blood Count 15.9 Red Blood Count 4.29 Hemoglobin 13.1 Hematocrit 37.8 Mean Corpuscular Volume 88.1 Mean Corpuscular Hemoglobin 30.5 Mean Corpuscular Hemoglobin 34.6 Concent Red Cell Distribution Width 14.7 Platelet Count 230 Mean Platelet Volume 8.9 Neutrophils (%) (Auto) 79.3 Lymphocytes (%) (Auto) 12.8 Monocytes (%) (Auto) 5.8 Eosinophils (%) (Auto) 1.7 Basophils (%) (Auto) 0.4 Neutrophils # (Auto) 12.6 Lymphocytes # (Auto) 2.0 Monocytes # (Auto) 0.9 Eosinophils # (Auto) 0.3 Basophils # (Auto) 0.1 CBC Comment DIFF FINAL Differential Comment Radiology Last Impressions Chest X-Ray 06/22/17 1851 Signed Impressions: Service Date/Time: Thursday, June 22, 2017 18:53 - CONCLUSION: No acute disease. Corby Herrera MD Abdomen/Pelvis CT 06/22/17 0000 Signed Impressions: Service Date/Time: Thursday, June 22, 2017 20:15 - CONCLUSION: 1. Free intraperitoneal air with moderate to severe ascites. 7.9 cm loculated abscess in the mesentery or lesser sac. Probable portal venous gas. Findings suspicious for perforated bowel. No definite obstruction. 2. Hiatal hernia with fluid in distal esophagus. Lung bases clear. Corby Herrera MD Narrative Exam NAD nonlabored breathing Abd: inc opened slightly inferiorly, now with some purulent drainage, lorena serous output A/P Assessment and Plan 61 yo M POD 9 s/p ex lap, repair perf duodenal ulcer. WBC elevated but CT ok and incision has superficial wound infection- I had to open it up a bit more and this was likely cause of elevated wbc. I am ok with dc home. I stressed importance of taking omeprazole 40mg BID. He will f/u with me one week. [facility] will see. ScottieJuancho MD Jul 01, 2017 11:59 Juancho Rubin MD Jul 01, 2017 11:59
[2017-07-01 12:00] VITALS: BP 141/81; PULSE 82; RESP 18; TEMP 96.3; O2SAT 95
--- NOTE | 2017-07-01 12:31 | HHI.PR ---
Subjective Remarks Follow-up for abdominal surgery Patient has no complaints. Continue his abdominal pain the pain is controlled. Denies any nausea /vomiting. Tolerating oral intake. Objective Vitals Vital Signs Date Time Temp Pulse Resp B/P Pulse Ox O2 Delivery O2 Flow Rate FiO2 07/01/17 08:00 98.7 67 18 115/69 100 07/01/17 04:17 98.3 80 17 127/82 95 06/30/17 23:53 98.9 79 18 126/78 97 06/30/17 22:00 95 06/30/17 20:30 96 Room Air 06/30/17 20:13 96.8 70 18 125/77 98 06/30/17 16:00 99.5 94 16 106/67 95 I/O 06/30/17 06/30/17 06/30/17 07/01/17 07/01/17 07/01/17 07:00 15:00 23:00 07:00 15:00 23:00 Intake Total 240 ml 1300 ml 480 ml 760 ml Output Total 450 ml 1485 ml 1000 ml 1500 ml 10 ml Balance -210 ml -185 ml -520 ml -740 ml -10 ml Intake Oral 240 ml 1200 ml 480 ml 760 ml IV Total 0 ml 100 ml 0 ml 0 ml Output Urine Total 450 ml 1475 ml 1000 ml 1500 ml Drainage Total 0 ml 10 ml 0 ml 10 ml # Bowel Movements 1 1 Result Diagram: 07/01/17 0604 06/28/17 0410 Objective Remarks GENERAL: Patient is in bed in position in no acute distress and is sitting very comfortably. CARDIOVASCULAR: Regular rate and rhythm without murmurs, gallops, or rubs. RESPIRATORY: Breath sounds equal bilaterally. No accessory muscle use. GASTROINTESTINAL: Abdomen soft, tender to palpation more at the wound site, nondistended. FLORENCE drain in place serosanguineous fluid MUSCULOSKELETAL: No cyanosis. BACK: Nontender without obvious deformity. No CVA tenderness. Procedures Perforated duodenal ulcer repair Medications and IVs Current Medications Sodium Chloride (NS 1000 ml Inj) 1,000 ml @ 2,000 mls/hr Q30M ONCE IV Last administered on 06/22/17t 19:15; Start 06/22/17 at 19:00; Stop 06/22/17 at 19:29; Status DC Ondansetron HCl (Zofran Inj) 4 mg ONCE ONCE IV Last administered on 06/22/17 19:12; Start 06/22/17 at 19:00; Stop 06/22/17 at 19:01; Status DC Hydromorphone HCl 1 mg 1 mg ONCE ONCE IVS Last administered on 06/22/17 19:14 ; Start 06/22/17 at 19:15; Stop 06/22/17 at 19:16; Status DC Sodium Chloride 1,000 ml @ 2,000 mls/hr Q30M ONCE IV Last administered on 19:51; Start 06/22/17 at 19:15; Stop 06/22/17 at 19:44; Status DC Sodium Chloride 1,000 ml @ 2,000 mls/hr Q30M ONCE IV Last administered on 20:58; Start 06/22/17 at 20:30; Stop 06/22/17 at 20:59; Status DC Vancomycin HCl 1000 mg/Sodium Chloride 250 ml @ 250 mls/hr ONCE ONCE IV Last administered on 06/22/17 21:41; Start 06/22/17 at 20:30; Stop 06/22/17 at 21:29; Status DC Piperacillin Sod/ Tazobactam Sod (Zosyn 3.375 Gm Premix) 50 ml @ 100 mls/hr ONCE ONCE IV Last administered on 06/22/17 20:58; Start 06/22/17 at 20:30; Stop 06/22/17 at 20:59; Status DC Iodixanol (VISIPAQUE 320 INJ (Rad CT)) 50 ml STK-MED ONCE IV Last administered on 06/22/17 20:25; Start 06/22/17 at 20:25; Stop 06/22/17 at 20:26; Status DC Hydromorphone HCl (Dilaudid Pf Inj) 1 mg ONCE ONCE IV PUSH Last administered on 06/22/17 20:58; Start 06/22/17 at 20:45; Stop 06/22/17 at 20:46; Status DC Midazolam HCl 2 mg 2 mg ONCE ONCE IV PUSH Last administered on 06/22/17 20:59 ; Start 06/22/17 at 20:45; Stop 06/22/17 at 20:46; Status DC Metronidazole (Flagyl 500 Mg Inj) 100 ml @ As Directed STK-MED ONCE IV ; Start 06/22/17 at 22:23; Stop 06/22/17 at 22:24; Status DC Sugammadex Sodium 200 mg 200 mg STK-MED ONCE IV PUSH ; Start 06/22/17 at 22:40; Stop 06/22/17 at 22:41; Status DC Sodium Chloride (NS 1000 ml Inj) 1,000 ml @ 125 mls/hr Q8H IV Last administered on 06/24/17 00:00; Start 06/23/17 at 00:00; Stop 06/24/17 at 05:59; Status DC Sodium Chloride (NS Flush) 2 ml UNSCH PRN IV FLUSH FLUSH AFTER USING IV ACCESS ; Start 06/23/17 at 00:00 Sodium Chloride (NS Flush) 2 ml BID IV FLUSH Last administered on 07/01/17 08: 46; Start 06/23/17 at 09:00 Ondansetron HCl (Zofran Inj) 4 mg Q6H PRN IV NAUSEA OR VOMITING; Start 06/23/17 at 00:00 Pantoprazole Sodium (Protonix Inj) 40 mg BID IV Last administered on 06/28/17 08:07; Start 06/23/17 at 09:00; Stop 06/28/17 at 14:01; Status DC Diphenhydramine HCl (Benadryl Inj) 25 mg Q6H PRN IV ITCHING; Start 06/23/17 at 00:00 Miscellaneous Information (Post-op Orders (for Pharmacy)) STAT ONCE XX ; Start 06/23/17 at 00:00; Stop 06/23/17 at 00:16; Status DC Naloxone HCl (Narcan Inj) 0.4 mg UNSCH PRN IV SEE LABEL COMMENTS; Start at 00:00 Naloxone HCl (Narcan Inj) 0.4 mg UNSCH PRN IV RESPIRATORY RATE LESS THAN 10; Start 06/23/17 at 00:00; Stop 06/28/17 at 14:01; Status DC Hydromorphone HCl (Dilaudid BORDER GUARD Inj) 6 mg UNSCH IV Last administered on 12:30; Start 06/23/17 at 00:00; Stop 06/23/17 at 15:43; Status DC BORDER GUARD Dosage Infused (Pha) 1 1 Q8HR OTHER Last administered on 06/23/17 16:00; Start 06/23/17 at 00:00; Stop 06/28/17 at 14:01; Status DC Levofloxacin/ Dextrose 150 ml @ 100 mls/hr Q24H IV Last administered on 02:16; Start 06/23/17 at 01:00; Stop 06/28/17 at 14:01; Status DC Metronidazole 100 ml @ 100 mls/hr Q8H IV Last administered on 06/28/17 13:23 ; Start 06/23/17 at 06:00; Stop 06/28/17 at 14:01; Status DC Levofloxacin/ Dextrose 50 ml @ As Directed STK-MED ONCE IV Last administered on 06/23/17 00:25; Start 06/23/17 at 00:25; Stop 06/23/17 at 00:26; Status DC Levofloxacin/ Dextrose (Levaquin 500 Mg Premix Inj) 100 ml @ As Directed STK- MED ONCE IV Last administered on 06/23/17 00:25; Start 06/23/17 at 00:25; Stop 06/23/17 at 00:26; Status DC Fentanyl Citrate (fentaNYL INJ) 250 mcg STK-MED ONCE .ROUTE ; Start 06/23/17 at 00:27; Stop 06/23/17 at 00:28; Status DC Fentanyl Citrate (fentaNYL INJ) 250 mcg STK-MED ONCE .ROUTE ; Start 06/23/17 at 00:27; Stop 06/23/17 at 00:28; Status DC Miscellaneous Information ALL NURSING DEPARTME... UNSCH PRN .XX SEE LABEL COMMENTS; Start 06/23/17 at 00:00; Stop 06/24/17 at 00:00; Status DC Sodium Chloride (NS Flush) 2 ml UNSCH PRN IV FLUSH FLUSH AFTER USING IV ACCESS ; Start 06/23/17 at 00:45; Status Cancel Sodium Chloride (NS Flush) 2 ml BID IV FLUSH Last administered on 06/23/17 09: 00; Start 06/23/17 at 09:00; Stop 06/23/17 at 17:02; Status DC Acetaminophen (Tylenol) 650 mg Q6H PRN PO PAIN 1-10 AND/OR FEVER >101F; Start 06/23/17 at 00:45; Stop 06/27/17 at 09:01; Status DC Ondansetron HCl (Zofran Inj) 4 mg Q6H PRN IV NAUSEA OR VOMITING; Start 06/23/17 at 00:45; Status Cancel Albuterol Sulfate (Albuterol Neb) 2.5 mg Q2HR NEB PRN INH SOB/WHEEZING; Start 06/23/17 at 00:45; Stop 06/24/17 at 21:33; Status DC Heparin Sodium (Porcine) (Heparin Inj) 5,000 units Q12H SQ Last administered on 07/01/17 04:57; Start 06/24/17 at 06:00 Miscellaneous Information 1 Q361D XX Last administered on 06/23/17 06:23; Start 06/23/17 at 00:45 Chlorhexidine Gluconate (Chlorhexidine 2% Cloth) Taper DAILY@04 TOP Last administered on 06/23/17 06:23; Start 06/23/17 at 04:00; Stop 06/19/18 at 03:59 Chlorhexidine Gluconate (Chlorhexidine 2% Cloth) 3 pack UNSCH PRN TOP HYGIENIC CARE; Start 06/23/17 at 00:45 Dextrose (D50w (Vial) Inj) 50 ml UNSCH PRN IV HYPOGLYCEMIA-SEE COMMENTS Last administered on 06/23/17 23:27; Start 06/23/17 at 00:45; Stop 06/28/17 at 13:39; Status DC Glucagon (Glucagon Inj) 1 mg UNSCH PRN OTHER HYPOGLYCEMIA-SEE COMMENTS; Start 06/23/17 at 00:45; Stop 06/28/17 at 13:39; Status DC Insulin Human Regular 1 1 Q4HR SQ Last administered on 06/28/17 20:00; Start 06/23/17 at 04:00 Thiamine HCl/ Sodium Chloride (Thiamine Inj/NS Inj) 101 ml @ 101 mls/hr DAILY IV Last administered on 07/01/17 08:45; Start 06/23/17 at 09:00 Hydromorphone HCl 6 mg 6 mg UNSCH IV Last administered on 06/27/17 05:15; Start 06/23/17 at 17:00; Stop 06/27/17 at 08:31; Status DC Lactated Ringer's (Lr 1000 ml Inj) 1,000 ml @ 999 mls/hr BOLUS ONCE IV Last administered on 06/23/17 16:00; Start 06/23/17 at 16:00; Stop 06/23/17 at 17:01; Status DC Dextrose 50 ml 50 ml STK-MED ONCE .ROUTE Last administered on 06/23/17 23:25; Start 06/23/17 at 23:25; Stop 06/23/17 at 23:26; Status DC Dextrose/Sodium Chloride (D5W-NS 1000 ml Inj) 1,000 ml @ 50 mls/hr Q20H IV Last administered on 06/27/17 20:50; Start 06/24/17 at 06:00; Stop 06/28/17 at 14:01; Status DC Dextrose (D50w (Syr) Inj) 50 ml STK-MED ONCE .ROUTE Last administered on 06:05; Start 06/24/17 at 06:09; Stop 06/24/17 at 06:10; Status DC Phenol 2 spray 2 spray Q2H PRN OROPHARYNG SORE THROAT; Start 06/24/17 at 12:00 Lactated Ringer's (Lr 1000 ml Inj) 1,000 ml @ 999 mls/hr BOLUS ONCE IV Last administered on 06/24/17 12:40; Start 06/24/17 at 12:00; Stop 06/24/17 at 13:00; Status DC Albuterol/ Ipratropium (Duoneb Neb) 1 ampule Q4HR NEB PRN NEB Dyspnea Last administered on 06/27/17 20:39; Start 06/24/17 at 21:30 Acetylcysteine (Mucomyst 10% Neb) 2 ml Q4HR NEB NEB Last administered on 15:37; Start 06/25/17 at 00:00; Stop 06/27/17 at 23:59; Status DC Diatrizoate Meglum/ Diatrizoate Sod ( Gastroview Liq) 360 ml STK-MED ONCE NG Last administered on 06/25/17 10:00; Start 06/25/17 at 10:00; Stop 06/25/17 at 10:10; Status DC Magnesium Hydroxide (Milk Of Magnesia Liq) 30 ml ONCE ONCE PO Last administered on 06/26/17 14:16; Start 06/26/17 at 13:30; Stop 06/26/17 at 13:31 ; Status DC Hydromorphone HCl (Dilaudid BORDER GUARD Inj) 6 mg UNSCH IV Last administered on 04:05; Start 06/27/17 at 08:30; Stop 06/28/17 at 14:02; Status DC Oxycodone HCl 10 mg 10 mg Q6H PRN PO PAIN SCALE 4 TO 10 Last administered on 08:43; Start 06/27/17 at 09:00; Stop 06/28/17 at 14:02; Status DC Calcium Chloride/ Sodium Chloride (Calcium Chloride Inj/NS Inj) 110 ml @ 110 mls/hr ONCE ONCE IV Last administered on 06/27/17 14:14; Start 06/27/17 at 13 :00; Stop 06/27/17 at 13:59; Status DC Potassium Chloride (KCl) 30 meq ONCE ONCE PO Last administered on 06/27/17 14 :12; Start 06/27/17 at 13:00; Stop 06/27/17 at 13:01; Status DC Potassium Phos/ Sodium Phos (K-Phos Neutral) 250 mg ONCE ONCE PO Last administered on 06/28/17 14:48; Start 06/28/17 at 13:45; Stop 06/28/17 at 13:46 ; Status DC Potassium Chloride (KCl) 30 meq ONCE ONCE PO Last administered on 06/28/17 13 :58; Start 06/28/17 at 13:45; Stop 06/28/17 at 13:46; Status DC Oxycodone HCl (Roxicodone) 15 mg Q6H PRN PO PAIN SCALE 4 TO 10 Last administered on 07/01/17 09:45; Start 06/28/17 at 15:00 Pantoprazole Sodium (Protonix) 40 mg Q12HR PO Last administered on 07/01/17 08 :45; Start 06/28/17 at 21:00 Levofloxacin (Levaquin) 750 mg DAILY PO Last administered on 07/01/17 08:45; Start 06/29/17 at 09:00 Metronidazole (Flagyl) 500 mg Q8HR PO Last administered on 07/01/17 12:09; Start 06/28/17 at 22:00 Furosemide (Lasix) 40 mg DAILY PO Last administered on 07/01/17 08:45; Start 06/28/17 at 15:00 Potassium Chloride (KCl) 30 meq ONCE ONCE PO Last administered on 06/29/17 15 :35; Start 06/29/17 at 10:45; Stop 06/29/17 at 10:59; Status DC Iohexol (Omnipaque 350 Inj) 75 ml STK-MED ONCE IV Last administered on 18:38; Start 06/30/17 at 18:38; Stop 06/30/17 at 18:39; Status DC A/P Problem List: (1) Perforated bowel ICD Code: K63.1 Status: Acute (2) History of ETOH abuse ICD Code: Z87.898 Status: Chronic (3) Hyponatremia ICD Code: E87.1 Status: Resolved (4) Polycythemia ICD Code: D75.1 Status: Resolved (5) Lactic acidosis ICD Code: E87.2 Status: Resolved (6) Sigmoid diverticulosis ICD Code: K57.30 Status: Chronic (7) Acute kidney injury ICD Code: N17.9 Status: Resolved (8) Elevated AST (SGOT) ICD Code: R74.0 Status: Acute (9) Ascites ICD Code: R18.8 Status: Resolved (10) History of hepatitis ICD Code: Z86.19 Status: Chronic (11) Current tobacco use ICD Code: Z72.0 Status: Chronic (12) Septic shock ICD Code: A41.9 Status: Resolved (13) Chronic, continuous use of opioids ICD Code: F11.90 Status: Chronic (14) Duodenal ulcer with perforation ICD Code: K26.5 Status: Acute (15) Leukocytosis ICD Code: D72.829 Status: Acute (16) Edema of both legs ICD Code: R60.0 Status: Acute Assessment and Plan Mr. Sierra is a 61 year old male with a history of alcoholism, diverticulitis, GERD, IVDU who presented to the ED on 06/22/2017 with severe abdominal pain. He reported vomiting with small amount of blood. CT abdomen/pelvis showed free intraperitoneal air with moderate to severe ascites as well as a 7.9 cm loculated abscess in the mesentery or lesser sac. Perforated bowel was suspected. Patient underwent emergent surgical intervention by Dr. Martinez Rubin on 06/22/2017 and subsequently managed in the ICU. Patient's care was transferred to the hospitalist service on 06/24/2017. Perforated duodenal ulcer - CT scan showed free air in the intraperitoneal with 7.[address] scan was repeated yesterday which no concerns were seen. -Status post Ex lap, repair of perforated duodenal ulcer. -on Continue Levaquin 750mg PO Qday, Flagyl 500mg PO Q8hrs. -On oxycodone. Pain only occurs with cough. continue with current pain regimen. -Continue Protonix. -FLORENCE drain was removed after patient was seen by me. Per nurse surgeon place packing. Acute kidney injury -Resolved after getting IV fluids. Most likely prerenal. Hyponatremia - resolved after IVF administration Hypokalemia/hypophosphatemia -Replenish as needed. Alcohol abuse/IV Drug abuse - Patient has been counselled. Deconditioning -PT consulted. Lower extremity edema. -Lower extremity Doppler negative for any DVT. Patient's on Lasix. Improving. Discharge Planning Patient is medically clear for discharge but needs home health at the moment. Dealt with patient's nurse and case management. Patient unable to have home health without electricity/running water. Dealt with case management to let me know when patient has electricity/wanting water. Problem Qualifiers (1) Ascites: Qualified Code: R18.8 - Other ascites Tereza Bender MD Jul 01, 2017 12:31
[2017-07-01] MEDS ORDERED: FURO40TA PO (15:23)
[2017-07-01] MEDS ORDERED: METR-1 PO (15:25)
[2017-07-01] MEDS ORDERED: LEVA750T9 PO (15:25)
--- NOTE | 2017-07-01 15:27 | HHI.DS ---
Discharge Summary Admission Date Jun 22, 2017 at 21:16 Discharge Date: Jul 01, 2017 Admitting Diagnosis Perforated Bowel (1) Perforated bowel ICD Code: K63.1 - Perforation of intestine (nontraumatic) Diagnosis: Principal (2) History of ETOH abuse ICD Code: Z87.898 - Personal history of other specified conditions Diagnosis: Secondary (3) Hyponatremia ICD Code: E87.1 - Hypo-osmolality and hyponatremia Diagnosis: Secondary (4) Polycythemia ICD Code: D75.1 - Secondary polycythemia Diagnosis: Secondary (5) Lactic acidosis ICD Code: E87.2 - Acidosis Diagnosis: Secondary (6) Acute kidney injury ICD Code: N17.9 - Acute kidney failure, unspecified Diagnosis: Principal (7) Elevated AST (SGOT) ICD Code: R74.0 - Nonspecific elevation of levels of transaminase and lactic acid dehydrogenase [LDH] Diagnosis: Secondary (8) Ascites ICD Code: R18.8 - Other ascites Diagnosis: Secondary (9) History of hepatitis ICD Code: Z86.19 - Personal history of other infectious and parasitic diseases Diagnosis: Secondary (10) Current tobacco use ICD Code: Z72.0 - Tobacco use Diagnosis: Secondary (11) Septic shock ICD Code: A41.9 - Sepsis, unspecified organism; R65.21 - Severe sepsis with septic shock Diagnosis: Principal (12) Chronic, continuous use of opioids ICD Code: F11.90 - Opioid use, unspecified, uncomplicated Diagnosis: Secondary (13) Duodenal ulcer with perforation ICD Code: K26.5 - Chronic or unspecified duodenal ulcer with perforation Diagnosis: Principal (14) Edema of both legs ICD Code: R60.0 - Localized edema Diagnosis: Principal Procedures Perforated duodenal ulcer repair Brief History - From Admission 61-year-old male. Date of admission 06/22/2017. Past medical history includes EtOH, tobaccoism. States he's been off alcohol for 2 years, hepatitis A, sigmoid diverticulosis, gastroesophageal reflux disease. Chronic oxycodone use. No previous abdominal surgeries. Workup included a CT the abdomen/pelvis revealed free intraperitoneal air, abdominal ascites with 7.9 cm loculation in the mesentery/lesser sac, hiatal hernia with food in esophagus and portal venous gas. Lactate was 5.9. White Blood cell count was normal. Patient was in acute renal failure creatinine 1.7/baseline 0.9 and a polycythemia/likely hemoconcentration due to dehydration Patient was taken to the OR for exploratory surgery by Dr. Rubin. Patient had an exploratory laparotomy is noted to have a perforation for a redo likely secondary to peptic ulcer. Gram patch was placed. Patient is currently been extubated in PACU. CBC/BMP: 07/01/17 0604 06/28/17 0410 Significant Findings Laboratory Tests Test 06/30/17 07/01/17 03:51 06:04 White Blood Count 14.6 TH/MM3 15.9 TH/MM3 (4.0-11.0) (4.0-11.0) Red Blood Count 4.24 MIL/MM3 4.29 MIL/MM3 (4.50-5.90) (4.50-5.90) Hematocrit 37.5 % 37.8 % (39.0-51.0) (39.0-51.0) Neutrophils (%) (Auto) 75.4 % 79.3 % (16.0-70.0) (16.0-70.0) Neutrophils # (Auto) 11.0 TH/MM3 12.6 TH/MM3 (1.8-7.7) (1.8-7.7) Imaging Last Impressions Abdomen/Pelvis CT 06/30/17 0000 Signed Impressions: Service Date/Time: Friday, June 30, 2017 18:20 - CONCLUSION: 1. Interim midline laparotomy and duodenal perforation repair. There is small, diffuse ascites and a focal fluid collection anterior to the pancreatic head and just above the drainage catheter. Mildly organized fluid is seen in the pelvic cavity. An additional small collection of fluid is seen medial to the caudate lobe of the liver. Neither fluid collection contain air or appear significantly indurated to fully substantiate that these are abscesses 2. Anasarca/body wall edema. 3. No acute abnormality seen of the anterior abdominal wall. 4. Atelectasis and small right, small to moderate left pleural effusions of the visualized lung bases. Julio Yao MD Lower Extremity Ultrasound 06/28/17 0000 Signed Impressions: Service Date/Time: Wednesday, June 28, 2017 19:25 - CONCLUSION: No evidence of lower extremity DVT on the right or left. Brad Jung MD Upper GI Series 06/25/17 0000 Signed Impressions: Service Date/Time: June 09:18 - CONCLUSION: No evidence of obstruction or leakage status post surgery. Sal Cline MD Chest X-Ray 06/22/17 1851 Signed Impressions: Service Date/Time: Thursday, June 22, 2017 18:53 - CONCLUSION: No acute disease. Corby Herrera MD PE at Discharge GENERAL: Patient is in bed in position in no acute distress and is sitting very comfortably. CARDIOVASCULAR: Regular rate and rhythm without murmurs, gallops, or rubs. RESPIRATORY: Breath sounds equal bilaterally. No accessory muscle use. GASTROINTESTINAL: Abdomen soft, tender to palpation more at the wound site, nondistended. FLORENCE drain in place serosanguineous fluid MUSCULOSKELETAL: No cyanosis. BACK: Nontender without obvious deformity. No CVA tenderness. Pt update on day of discharge See progress note from the day of discharge for further information. Hospital Course Mr. Sierra is a 61 year old male with a history of alcoholism, diverticulitis, GERD, IVDU who presented to the ED on 06/22/2017 with severe abdominal pain. He reported vomiting with small amount of blood. CT abdomen/pelvis showed free intraperitoneal air with moderate to severe ascites as well as a 7.9 cm loculated abscess in the mesentery or lesser sac. Perforated bowel was suspected. Patient underwent emergent surgical intervention by Dr. Martinez Rubin on 06/22/2017 and subsequently managed in the ICU. Patient's care was transferred to the hospitalist service on 06/24/2017. Perforated duodenal ulcer - CT scan showed free air in the intraperitoneal with 7.[address] scan was repeated for the day discharge and there were no concerns. -Status post Ex lap, repair of perforated duodenal ulcer. -She was put on IV Levaquin and Flagyl and later switched to oral medication. -On oxycodone. Pain only occurs with cough. continue with current pain regimen. -Continue Protonix. -FLORENCE drain was removed during his hospitalization. Acute kidney injury -Resolved after getting IV fluids. Most likely prerenal. Hyponatremia - resolved after IVF administration Hypokalemia/hypophosphatemia -Replenish as needed. Alcohol abuse/IV Drug abuse - Patient has been counselled. Lower extremity edema. -Lower extremity Doppler negative for any DVT. Patient's on Lasix and symptoms improved. Pt Condition on Discharge: Good Discharge Disposition: Disch w/ Home Health Serv Discharge Time: > 30 minutes Discharge Instructions DIET: Follow Instructions for: As Tolerated, No Restrictions Activities you can perform: See Additionl Instruction Other Activity Instructions: as directed by Surgeon Follow up Referrals: PCP Follow-up - 1 Week SNF/[facility]/ with [facility] Surgical - 1 Week with Juancho Rubin MD New Medications: Pantoprazole (Pantoprazole) 40 Mg Tab 40 MG PO BID for Reflux, #60 TAB 0 Refills Furosemide (Furosemide) 40 Mg Tab 40 MG PO DAILY for lower ext edema, #7 TAB 0 Refills Levofloxacin (Levaquin) 750 Mg Tablet 750 MG PO DAILY for infection for 5 Days, TAB 0 Refills Metronidazole (Flagyl) 500 Mg Tab 500 MG PO Q8HR for infection for 5 Days, TAB 0 Refills Oxycodone (Oxycodone) 10 Mg Tab 15 MG PO Q6H PRN for PAIN SCALE 4 TO 10, #30 TAB 0 Refills Discontinued Medications: Oxycodone (Oxycodone) 30 Mg Tab 30 MG PO Q4HR PRN for PAIN, TAB 0 Refills Tereza Bender MD Jul 01, 2017 15:27
[2017-07-01 16:00] VITALS: BP 121/72; PULSE 77; RESP 18; TEMP 97.6; O2SAT 96
== END 2017-07-01 19:08 | disposition home health service (06) | DRG 853 ==
LOC: NEPD 18:27 → NEDA 21:16 → N03A 06-23 01:59 → N07A 06-23 17:07
PROVIDERS: ADMIT Family Medicine; ATTEND Family Medicine
PROC: 0DU907Z Supplement Duodenum with Autologous Tissue Substitute, Open Approach (ICD-10-PCS; principal; 2017-06-22 21:53)
DX: A41.9 Sepsis, unspecified organism (principal); K26.5 Chronic or unspecified duodenal ulcer with perforation; R65.21 Severe sepsis with septic shock; K65.1 Peritoneal abscess; E87.2 Acidosis; N17.9 Acute kidney failure, unspecified; R18.8 Other ascites; E87.1 Hypo-osmolality and hyponatremia; E88.09 Other disorders of plasma-protein metabolism, not elsewhere classified; D75.1 Secondary polycythemia; F17.210 Nicotine dependence, cigarettes, uncomplicated; K57.30 Diverticulosis of large intestine without perforation or abscess without bleeding; K21.9 Gastro-esophageal reflux disease without esophagitis; K44.9 Diaphragmatic hernia without obstruction or gangrene; E86.0 Dehydration; R73.9 Hyperglycemia, unspecified; F10.21 Alcohol dependence, in remission; E83.51 Hypocalcemia; E87.6 Hypokalemia; E83.39 Other disorders of phosphorus metabolism; Z86.19 Personal history of other infectious and parasitic diseases; Z79.891 Long term (current) use of opiate analgesic
CPT/HCPCS: 71010; 74177; 74240; 80048; 80053; 82140; 82550; 82948; 83605; 83690; 83735; 84100; 84484; 85007; 85025; 85027; 85384; 85610; 85730; 86850; 86900; 86901; 87040; 87641; 93005; 93970; 94002; 94150; 94640; 94664; 96361; 96365; 96374; 96375; 96376; C9113; J1170; J1644; J1956; J2250; J2370; J2405; J2543; J2710; J3010; J3370; J3411; J7030; J7042; J7050; J7120; J7608; Q9963; Q9967

== ENCOUNTER 2018-05-07 22:24 | Emergency (ER) | payer SELFPAY ==
[~2018-05-07] VITALS: Ht 175.3 cm; Wt 61.4 kg
[~2018-05-07 22:24] MED LIST changes: +FURO40TA PO; -LACTATED RINGER'S 1000 ML INJ 3,000 ML IV ONE; +LEVA750T9 PO; +METR-1 PO; -NEOSTIGMINE 3 MG/3 ML SYR IV ONE; -ONDANSETRON HCL 4 MG/2 ML VIAL IV PUSH ONE; +OXYC-395 PO; -OXYCODONE PO; +PANT40TA3 PO; -PHENYLEPH/NS 1000 MCG/10 ML SYR IV ONE; -PROPOFOL 200 MG/20 ML AMP IV ONE
[2018-05-07 22:43] VITALS: BP 149/70; PULSE 90; RESP 16; TEMP 98.4; O2SAT 98
[2018-05-07] MEDS ORDERED: SULFAMETHOXAZOLE-TRIMETHOPRIM DS 800-160 MG TAB PO ONE (23:45)
[2018-05-07] MEDS ORDERED: CLINDAMYCIN 150 MG CAP PO ONE (23:45)
[2018-05-08] MEDS ORDERED: DOXY1CAP91 PO (02:41)
[2018-05-08] MEDS ORDERED: BACT800T5 PO (02:41)
--- NOTE | 2018-05-08 02:41 | PD ---
HPI . Skin abscess Chief Complaint: Skin Problem Time Seen by Provider: 23:19 Travel History International Travel<30 days: No Contact w/Intl Traveler<30days: No Traveled to known affect area: No History of Present Illness HPI Patient has multiple complaints including skin infections on his arms and legs he has in his antecubital his left arm he feels there is an abscess that is not getting better he also says he thinks is diabetic and he needs food PFSH Past Medical History Arthritis: No Asthma: Yes Blood Disorders: No Cancer: No Cardiovascular Problems: No Chemotherapy: No COPD: No Diabetes: Yes ("MAYBE") Patient Takes Glucophage: No Diminished Hearing: No Endocrine: No Gastrointestinal Disorders: Yes GERD: Yes Genitourinary: No Hepatitis: Yes (HEP A) Immune Disorder: No Musculoskeletal: Yes Neurologic: No Reproductive: No Respiratory: Yes Immunizations Current: Yes Radiation Therapy: No Sleep Apnea: No Tetanus Vaccination: > 5 Years Influenza Vaccination: No Past Surgical History AICD: No Arteriovenous Shunt: No Insulin Pump: No Joint Replacement: No Neurologic Surgery: Yes (FUSION TO C3-4) Pacemaker: No Other Surgery: Yes (HERNIA ) Social History Alcohol Use: Yes (6 BEER/DAY) Tobacco Use: Yes (1/2 A PACK A DAY ) Substance Use: Yes (DILAUDID) Allergies-Medications (Allergen,Severity, Reaction): Coded Allergies: penicillin G (Verified Allergy, Mild, REACTION TO SITE OF INJECTION, ) *MDRO Multi-Drug Resistant Organism (Verified Adverse Reaction, Unknown, ) MRSA PCR Positive 06/23/17 Reported Meds & Prescriptions Reported Meds & Active Scripts Active Levaquin (Levofloxacin) 750 Mg Tablet 750 Mg PO DAILY 5 Days Flagyl (Metronidazole) 500 Mg Tab 500 Mg PO Q8HR 5 Days Furosemide 40 Mg Tab 40 Mg PO DAILY Pantoprazole (Pantoprazole Sodium) 40 Mg Tab 40 Mg PO BID Oxycodone (Oxycodone HCl) 10 Mg Tab 15 Mg PO Q6H PRN Review of Systems Except as stated in HPI: all other systems reviewed are Neg Skin: Positive Itching, Positive Lumps, Positive Lesions Physical Exam Narrative GENERAL: Patient is very thin and he is sun exposed skin and he has areas that look like small abscesses in the antecubital on both sides the largest one is 3 cm with an eschar in the center where he expressed pus himself SKIN: Warm and dry. Multiple small areas of skin erosions look like eschars from prior abscess largest being 3 cm on the antecubital left side HEAD: Atraumatic. Normocephalic. EYES: Pupils equal and round. No scleral icterus. No injection or drainage. ENT: No nasal bleeding or discharge. Mucous membranes pink and moist. NECK: Trachea midline. No JVD. CARDIOVASCULAR: Regular rate and rhythm. RESPIRATORY: No accessory muscle use. Clear to auscultation. Breath sounds equal bilaterally. GASTROINTESTINAL: Abdomen soft, non-tender, nondistended. Hepatic and splenic margins not palpable. MUSCULOSKELETAL: Extremities without clubbing, cyanosis, or edema. No obvious deformities. NEUROLOGICAL: Awake and alert. No obvious cranial nerve deficits. Motor grossly within normal limits. Five out of 5 muscle strength in the arms and legs. Normal speech. PSYCHIATRIC: Appropriate mood and affect; insight and judgment normal. Data Data Last Documented VS Vital Signs Date Time Temp Pulse Resp B/P (MAP) Pulse Ox O2 Delivery O2 Flow Rate FiO2 05/07/18 22:43 98.4 90 16 149/70 (96) 98 Orders Orders Clindamycin (Cleocin) (05/07/18 23:45) Sulfamet-Trimeth Ds 800-160 Mg (Bactrim (05/07/18 23:45) MDM Medical Decision Making Medical Screen Exam Complete: Yes Emergency Medical Condition: Yes Diagnosis Primary Impression: Skin abscess Qualified Codes: L02.414 - Cutaneous abscess of left upper limb Scripts Doxycycline (Monohydrate) (Doxycycline) 100 Mg Cap 100 MG PO BID for 7 Days Prov: Juancho Andrade MD 05/08/18 Sulfamethoxazole-Trimethoprim (Bactrim DS) 800-160 Mg Tab 1 TAB PO BID for Infection, #20 TAB 0 Refills Prov: Juancho Andrade MD 05/08/18 Disposition: 01 DISCHARGE HOME Juancho Andrade MD May 08, 2018 02:41
[2018-05-08 03:20] VITALS: BP 125/75
== END 2018-05-08 03:32 | disposition home or self-care (01) ==
LOC: NEPC 22:24
DX: L02.414 Cutaneous abscess of left upper limb (principal); F17.200 Nicotine dependence, unspecified, uncomplicated
CPT/HCPCS: 99283